=== PATIENT | male | born 1955 | race Caucasian/White ===

== ENCOUNTER 2017-02-12 15:45 | Inpatient (IN) | payer BC ==
[~2017-02-12] VITALS: Ht 175.3 cm; Wt 88.0 kg
[2017-02-12 18:33] VITALS: BP 129/89
[2017-02-12 18:57] LABS: BASO # 0.1 x10^3/uL (0.0-0.2); BASO % 1 % (0-3); EOS % 1 % (0-3); HEMATOCRIT 40.5 % (36.0-47.0); HEMOGLOBIN 13.7 g/dL (12.0-15.5); LYMPH # 1.8 x10^3/uL (1.0-4.8); LYMPH % 27 % (24-48); MEAN CORPUSCULAR HEMOGLOBIN 38 pg (25-35); MEAN CORPUSCULAR HGB CONC 34 g/dL (31-37); MEAN CORPUSCULAR VOLUME 112 fL (79-100); MONO % 7 % (0-9); NEUT % 65 % (31-73); PLATELET COUNT 89 x10^3/uL (140-400); RED BLOOD COUNT 3.63 x10^6/uL (3.50-5.40); RED CELL DISTRIBUTION WIDTH 18.9 % (11.5-14.5); WHITE BLOOD COUNT 6.6 x10^3/uL (4.0-11.0)
[2017-02-12 19:00] VITALS: BP 138/89
[2017-02-12 19:08] LABS: ALBUMIN 2.7 g/dL (3.4-5.0); ALBUMIN/GLOBULIN RATIO 0.5 (1.0-1.7); CALCIUM 8.5 mg/dL (8.5-10.1); CREATININE 1.3 mg/dL (0.6-1.0); GFR 41.5; TOTAL PROTEIN 8.3 g/dL (6.4-8.2)
[2017-02-12 19:11] LABS: POTASSIUM 2.8 mmol/L (3.5-5.1)
[2017-02-12] MEDS ORDERED: POTASSIUM CHLORIDE 10MEQ 100 ML IV SCH (19:30)
[2017-02-12] MEDS: IV DEXTROSE 5%-LACT RINGERS 1,000 ML IV SCH (19:33)
[2017-02-12] MEDS ORDERED: POTASSIUM CHLORIDE IV SCH (20:00)
[2017-02-12] MEDS ORDERED: PANTOPRAZOLE IV PUSH 40 MG VIAL. IVP ONE (20:00)
[2017-02-12] MEDS ORDERED: NORMAL SALINE IV SCH (20:00)
[2017-02-12] MEDS: ONDANSETRON PF 4 MG/2 ML VIAL. IV PRN (20:00)
[2017-02-12 20:20] LABS: ANISOCYTOSIS SLIGHT; PLT ESTIMATE DECREASED (ADEQUATE); TARGET CELLS OCC
--- NOTE | 2017-02-12 20:58 | EKG ---
[facility] [address] [place] [address] Test Date: 2017-02-12 Test Time: 20:52:43 Pat Name: NORMA STONE Department: Room: 512 1 Gender: F Principal Quality Engineer: : [id number] Requested By: GEOFFREY CALHOUN Order Number: [id number] Reading MD: Bertram Delatorre MD Measurements Intervals Orient Rate: 82 P: 180 MT: 150 QRS: 118 QRSD: 78 T: 125 QT: 426 QTc: 501 Interpretive Statements SINUS RHYTHM LEFT POSTERIOR FASCICULAR BLOCK NON-SPECIFIC ST/T CHANGES Electronically Signed On 02-17-2017 10:37:47 B[employer] REPA[employer] by Bertram Delatorre MD
[2017-02-12 21:40] LABS: BILIRUBIN,URINE NEGATIVE (NEG); GLUCOSE,URINE NEGATIVE (NEG); NITRITE,URINE NEGATIVE (NEG); PROTEIN,URINE NEGATIVE (NEG-TRACE)
[2017-02-12 21:51] LABS: BACTERIA,URINE 0 /HPF (0-FEW); BARBITURATES NEG (NEG); BENZODIAZEPINES NEG (NEG); CANNABINOIDS POS (NEG); COCAINE NEG (NEG); METHADONE NEG (NEG); OPIATES NEG (NEG); PHENCYCLIDINE NEG (NEG); RBC,URINE 0 /HPF (0-2); SQUAMOUS EPITHELIAL CELL,UR OCC /LPF; WBC,URINE 0 /HPF (0-4)
[2017-02-12] MEDS: HYDROmorphone 2 MG/ML VIAL IVP PRN (22:51)
[2017-02-12 23:00] VITALS: BP 121/76
--- NOTE | 2017-02-13 02:51 | HP ---
ADMIT DATE: 02/12/2017 CHIEF COMPLAINT: Abdominal pain. HISTORY OF PRESENT ILLNESS: A 62-year-old white male presented in the office on the day of admission with about a 6-week history of increasing pain in the upper abdomen and also in the middle and right side. There was increasing nausea and vomiting of a nonbloody nature and he has noted "dark urine" but has not noticed any change in bowel movements and has not seen any melena or hematochezia. He takes no prescription medications, he takes only periodic ibuprofen as far as [id number]-trhftob meds. PAST MEDICAL HISTORY: He has had nasal surgery only. He has no drug allergies or immunization history. He has had no other surgeries or admissions. He had a colonoscopy "30 years ago" but none since that time. SOCIAL HISTORY: He is only an occasional drinker. He quit smoking a couple of years ago. He is . He is employed. FAMILY HISTORY: Unremarkable. REVIEW OF SYSTEMS: Denies weight loss, fever, chills or other specific complaints. PHYSICAL EXAMINATION: ENT: Sclerae very minimally icteric. Pupils round and reactive. TMs and pharynx clear. NECK: Revealed no carotid bruits, thyroid enlargement or masses. LUNGS: Clear with mild tachypnea. CARDIOVASCULAR: Regular rate tachycardia of about 100-110 and regular. ABDOMEN: Tender in the epigastrium and right upper quadrant, less so on the left lower quadrant. No guarding or masses were felt. No overt Pablo sign is noted. Bowel sounds are active. EXTREMITIES: Good pedal and radial pulses. No joint or skin lesions or nail bed findings. GENITOURINARY AND RECTAL: Deferred. NEUROLOGIC: Physiologic, nonfocal. Alert and oriented. ASSESSMENT: Upper abdominal pain, nausea, vomiting, mild dehydration. Differential would include peptic ulcer disease with outlet obstruction, biliary tract disease as he does have mild bilirubin in the urine, liver disease, alcoholic or nonalcoholic as the most likely etiologies. He denies alcoholic hepatitis and pancreatitis could present similarly as well. PLAN: Labs, CT scan, IV fluids, Protonix and then appropriate evaluation and consultation. GEOFFREY CALHOUN MD DR: ADELE/oh JOB#: [id number] / [id number]
[2017-02-13 03:07] VITALS: BP 123/71
[2017-02-13] MEDS: HYDROmorphone 2 MG/ML VIAL IVP PRN ×3 (03:50→19:56)
[2017-02-13] MEDS: IV DEXTROSE 5%-LACT RINGERS 1,000 ML IV SCH ×3 (04:09→19:54)
[2017-02-13 06:24] LABS: ALBUMIN/GLOBULIN RATIO 0.5 (1.0-1.7); CALCIUM 7.4 mg/dL (8.5-10.1); GFR 56.2; POTASSIUM 3.2 mmol/L (3.5-5.1); TOTAL BILIRUBIN 3.2 mg/dL (0.2-1.0); TOTAL PROTEIN 6.1 g/dL (6.4-8.2)
[2017-02-13] MEDS ORDERED: CONTRAST GIVEN MC PRN (06:30)
[2017-02-13] MEDS ORDERED: IOHEXOL 300 MG/ML 100ML VIAL. IV ONE (07:00)
[2017-02-13 07:35] VITALS: BP 135/78
[2017-02-13 08:16] LABS: PLT ESTIMATE DECREASED (ADEQUATE)
--- NOTE | 2017-02-13 08:47 | PDOC ---
Provider Note Provider Note pain same, vss, good output- bili 5 , now 3.2, alt/ggtp/mcv all high , suspect etoh as etiology that he denies, uds showed etoh and thc - will add thiamine, ct pending , check d/bilGEOFFREY Lee MD Feb 13, 2017 08:46
[2017-02-13] MEDS ORDERED: PNEUMOC CONJ VACC 23-VALENT 0.5 ML VIAL. VAX IM ONE (09:00)
[2017-02-13] MEDS ORDERED: THIAMINE 100 MG in IV DEXTROSE 5% 50 ML IV SCH (09:00)
[2017-02-13] MEDS ORDERED: PNEUMOCOCCAL VAX SCREEN BY RX. MC ONE (09:00)
[2017-02-13] MEDS ORDERED: FLU VACC QS2017-18 (36MOS+)/PF 0.5 ML SYRINGE. VAX IM ONE (09:00)
[2017-02-13] MEDS ORDERED: INFLUENZA VAX SCREEN BY RX. MC ONE (09:00)
--- NOTE | 2017-02-13 10:05 | RAD ---
EXAM: CT abdomen/pelvis with contrast. HISTORY: Abdominal pain. TECHNIQUE: Computed tomography of the abdomen and pelvis was performed after the intravenous administration of 75 mL Omnipaque 300. COMPARISON: None. FINDINGS: Lung windows through the visualized portions of the bases reveal trace bilateral pleural effusions and associated atelectasis. Bone windows reveal no suspicious lesions. Hypoattenuation of the hepatic parenchyma indicates at least mild diffuse hepatic steatosis. Hepatic surface nodularity indicated surrounding change. There are no clear focal hepatic lesions. The spleen is not enlarged. A spleen or renal shunt is noted. There are small paraesophageal varices. There is a small amount of ascites. Small gallstones are noted. The common duct is mildly dilated at 8 mm. The pancreas, adrenal glands and kidneys are unremarkable. There are no pathologically enlarged lymph nodes. Sigmoid diverticulosis is moderate. There is no obstruction. A small umbilical hernia contains only fat. IMPRESSION: 1. Hepatic cirrhosis. No focal hepatic lesions. Small ascites. Small paraesophageal varices. 2. Cholelithiasis. 3. Small umbilical hernia containing only fat. *One or more of the following individualized dose reduction techniques were utilized for this examination: 1. Automated exposure control. 2. Adjustment of the mA and/or kV according to patient size. 3. Use of iterative reconstruction technique.
[2017-02-13 10:45] VITALS: BP 129/72
[2017-02-13] MEDS: PANTOPRAZOLE IV PUSH 40 MG VIAL. IVP SCH (10:50)
[2017-02-13] MEDS: THIAMINE IM 200 MG/2 ML VIAL. IM SCH (10:51)
[2017-02-13 11:23] LABS: BASO % 1 % (0-3); EOS % 3 % (0-3); HEMATOCRIT 31.9 % (36.0-47.0); HEMOGLOBIN 10.8 g/dL (12.0-15.5); LYMPH # 1.3 x10^3/uL (1.0-4.8); LYMPH % 42 % (24-48); MEAN CORPUSCULAR HEMOGLOBIN 38 pg (25-35); MEAN CORPUSCULAR HGB CONC 34 g/dL (31-37); MEAN CORPUSCULAR VOLUME 113 fL (79-100); MONO % 10 % (0-9); NEUT % 45 % (31-73); PLATELET COUNT 51 x10^3/uL (140-400); RED BLOOD COUNT 2.83 x10^6/uL (3.50-5.40); RED CELL DISTRIBUTION WIDTH 19.4 % (11.5-14.5); WHITE BLOOD COUNT 3.1 x10^3/uL (4.0-11.0)
[2017-02-13 15:00] VITALS: BP 137/82
[2017-02-13 15:01] LABS: INR 1.5 (0.8-1.1); PROTHROMBIN TIME PATIENT 17.5 SEC (11.7-14.0)
[2017-02-13] MEDS: ONDANSETRON PF 4 MG/2 ML VIAL. IV PRN (15:50)
[2017-02-13 19:00] VITALS: BP 126/80
[2017-02-13 22:51] VITALS: BP 124/59
[2017-02-14 01:15] LABS: HEP A IGM ABDY Negative (Negative)
[2017-02-14] MEDS: IV DEXTROSE 5%-LACT RINGERS 1,000 ML IV SCH ×2 (02:18→03:20)
[2017-02-14 03:00] VITALS: BP 138/83
[2017-02-14 05:54] LABS: TOTAL BILIRUBIN 3.2 mg/dL (0.2-1.0); TOTAL PROTEIN 6.2 g/dL (6.4-8.2)
[2017-02-14 07:00] VITALS: BP 120/73
[2017-02-14] MEDS: PANTOPRAZOLE IV PUSH 40 MG VIAL. IVP SCH (07:22)
[2017-02-14] MEDS: THIAMINE IM 200 MG/2 ML VIAL. IM SCH (08:42)
--- NOTE | 2017-02-14 08:51 | PDOC ---
SUBJECTIVE Subjective Mr. Alvarado is feeling somewhat better. Still having abd pain, predominantly in the RUQ/epigastric area. Discussed findings of labs and CT scan. Pt admitted to many years of heavy drinking (up to 6-10 beers most nights of the week), but has recently cut back on alcohol. When he drinks now, it is typically 3-4 shots of whiskey once or twice a week. He denies any symptoms of acute alcohol withdrawal. No hx of seizures. Notes that he hasn't had much to drink over the last 6 weeks. He doesn't know why there was alcohol in his urine on admission. He desires to advance to regular diet as tolerated. Drinking well, can stop IV fluids. OBJECTIVE Objective Reviewed. Vital Signs Vital Signs Date Time Temp Pulse Resp B/P (MAP) Pulse Ox O2 Delivery O2 Flow Rate FiO2 02/14/17 08:00 Room Air 02/14/17 07:00 99.1 108 17 120/73 (89) 93 Room Air 99.1 02/14/17 03:00 98.5 98 20 138/83 (101) 97 Room Air 98.5 02/13/17 22:51 98.1 86 18 124/59 (80) 97 Room Air 98.1 02/13/17 20:26 97 Room Air 02/13/17 20:00 Room Air 02/13/17 19:56 94 02/13/17 19:00 97.8 79 18 126/80 (95) 95 Room Air 97.8 02/13/17 15:00 98.1 77 18 137/82 (100) 94 Room Air 98.1 02/13/17 10:58 Room Air 02/13/17 10:45 98.1 83 18 129/72 (91) 96 Room Air 98.1 I & O Reviewed. PHYSICAL EXAM Physical Exam NAD, alert, oriented Mild scleral icterus RRR, no murmurs CTAB, nonlabored Abd is obese, tender to palpation in the RUQ, no appreciable fluid wave, unable to evaluate for hepatomegaly due to tenderness No LE edema, normal pulses throughout No asterixis, tremors noted, no anxiety noted. Calm, cooperative. ASSESSMENT/PLAN Assessment/Plan Cirrhosis - MELD score 15 (6% 3 month mortality Cholelithiasis Alcohol abuse MJ use RUQ abd pain Macrocytic anemia Thrombocytopenia Hyperbilirubinemia Elevated INR without anticoagulant use + Hep B c IgM ab DC IVFs Advance diet as tolerated GI consulted Kamla PRN pain - using infrequently Counseled on the importance of abstinence from alcohol Problems: COMMENT Lab Laboratory Tests Test 02/13/17 14:39 02/13/17 21:06 02/14/17 04:25 Prothrombin Time 17.5 SEC (11.7-14.0) Prothromb Time International Ratio 1.5 (0.8-1.1) Glucose (Fingerstick) 109 mg/dL (70-99) Total Bilirubin 3.2 mg/dL (0.2-1.0) Direct Bilirubin 2.0 mg/dL (0.0-0.2) Aspartate Amino Transf (AST/SGOT) 88 U/L (15-37) Alanine Aminotransferase (ALT/SGPT) 30 U/L (16-63) Alkaline Phosphatase 132 U/L (46-116) Total Protein 6.2 g/dL (6.4-8.2) Albumin 2.0 g/dL (3.4-5.0) HARJEET SOLORIO MD Feb 14, 2017 08:51
[2017-02-14 08:59] LABS: CALCIUM 7.5 mg/dL (8.5-10.1); CREATININE 0.9 mg/dL (0.7-1.3); GFR 85.5; POTASSIUM 3.7 mmol/L (3.5-5.1)
[2017-02-14] MEDS: HYDROmorphone 2 MG/ML VIAL IVP PRN ×2 (09:05→21:39)
[2017-02-14 10:37] VITALS: BP 125/75
--- NOTE | 2017-02-14 10:55 | PDOC2 ---
GI CONSULT Reason For Consult: cirrhosis, + Hep B c IgM ab HPI: HPI: 62 y/o male who recently has had issues w/ lower abd pain radiating to RUQ w/ n/ v, admitted a couple days ago. Apparent h/o alcohol abuse although he won't quantify w/ me how much he drinks now. Significant labs: pancytopenia w/ plt 51 , INR 1.5, bili 3.2 (from 5), AST 88, ALT 30, Alk Phos 132. On hepatitis panel , +Hep B c IgM ab. Urine + cannabinoids and ethyl alcohol. CT/ w/ cirrhosis, ascites, paraesophageal varices, and cholelithiasis. Feeling better today, going to try solid foods. Colonoscopy years ago, no significant findings recalls. H/o GERD ("carried Tums everywhere I went") ~10 years ago, no longer bothersome, no previous EGD. No dysphagia, weight loss. Last BM ~5 days ago, "feels things rumbling" today. No hematochezia, melena, hematemesis. No pancreatic history. PMH: PMH: nasal surgery, alcohol abuse, cirrhosis FH: Family History: Other (uncle had hepatitis) Social History: Smoke: Quit ALCOHOL: heavy Drugs: Marijuana ROS: GEN: Denies fevers, chills, sweats HEENT: Denies blurred vision, sore throat CV: Denies chest pain RESP: Denies shortness of air, cough GI: Per HPI : Denies hematuria, dysuria ENDO: Denies weight changes NEURO: Denies confusion, dizziness MSK: Denies weakness, joint pain/swelling SKIN: Denies jaundice, pruritus Vitals: Vitals: Vital Signs Date Time Temp Pulse Resp B/P (MAP) Pulse Ox O2 Delivery O2 Flow Rate FiO2 02/14/17 10:37 100.3 102 18 125/75 (92) 93 Room Air 100.3 Labs: Labs: Laboratory Tests Test 02/13/17 14:39 02/13/17 21:06 02/14/17 04:25 Prothrombin Time 17.5 SEC (11.7-14.0) Prothromb Time International Ratio 1.5 (0.8-1.1) Glucose (Fingerstick) 109 mg/dL (70-99) Sodium Level 141 mmol/L (136-145) Potassium Level 3.7 mmol/L (3.5-5.1) Chloride Level 104 mmol/L (98-107) Carbon Dioxide Level 33 mmol/L (21-32) Anion Gap 4 (6-14) Blood Urea Nitrogen 6 mg/dL (8-26) Creatinine 0.9 mg/dL (0.7-1.3) Estimated GFR (Cockcroft-Gault) 85.5 Glucose Level 98 mg/dL (70-99) Calcium Level 7.5 mg/dL (8.5-10.1) Total Bilirubin 3.2 mg/dL (0.2-1.0) Direct Bilirubin 2.0 mg/dL (0.0-0.2) Aspartate Amino Transf (AST/SGOT) 88 U/L (15-37) Alanine Aminotransferase (ALT/SGPT) 30 U/L (16-63) Alkaline Phosphatase 132 U/L (46-116) Total Protein 6.2 g/dL (6.4-8.2) Albumin 2.0 g/dL (3.4-5.0) Allergies: Coded Allergies: No Known Drug Allergies (Unverified , 02/12/17) Medications: Please see EMR. Imaging: Imaging: CT A/P IMPRESSION: 1. Hepatic cirrhosis. No focal hepatic lesions. Small ascites. Small paraesophageal varices. 2. Cholelithiasis. 3. Small umbilical hernia containing only fat. PE: GEN: NAD HEENT: Atraumatic, PERRL LUNGS: diminished anteriorly HEART: RRR ABD: BS+, some RUQ discomfort, some distention EXTREMITY: No edema SKIN: No rashes, no jaundice NEURO/PSYCH: A & O 3 A/P: A/P: Cirrhosis, +Hep B c IgM ab, alcohol abuse N/v, abd pain - improved Cholelithiasis Pancytopenia, elevated LFTs H/o GERD -significant ~10 years ago, no longer bothersome, no previous EGD CRC screen -colonoscopy years ago -- Possible acute Hep B infection. Check AFP, Doppler. Abstinence from alcohol. Could change IV PPI to PO if tolerates diet. Outpt EGD and colonoscopy. SANDEEP VILLARREAL Feb 14, 2017 10:55
--- NOTE | 2017-02-14 13:23 | RAD ---
EXAM: Liver Doppler. HISTORY: Cirrhosis. COMPARISON: 02/13/2017. FINDINGS: Grayscale and Doppler analysis of the hepatic vasculature was performed. Hyperechogenicity of the hepatic parenchyma indicates diffuse hepatic steatosis. Hepatic surface nodularity indicate cirrhotic change. There is a small amount of perihepatic ascites. The spleen does not appear enlarged at 11.5 cm. The hepatic veins are patent with normally directed flow. The main, right and left portal veins are also patent with normally directed flow. The splenic vein is patent. A splenorenal shunt noted by CT is not demonstrated by this technique. The hepatic artery is patent without evidence of stenosis. IMPRESSION: 1. The portal and hepatic veins are patent with normally directed flow. 2. Cirrhotic change with small ascites. Splenorenal shunt better seen on CT.
[2017-02-14 14:39] VITALS: BP 116/76
[2017-02-14 19:20] VITALS: BP 129/51
[2017-02-14] MEDS: ONDANSETRON PF 4 MG/2 ML VIAL. IV PRN (23:27)
[2017-02-14 23:50] VITALS: BP 99/52
[2017-02-15] MEDS ORDERED: PROMETHAZINE 12.5 MG in IV DEXTROSE 5% 50 ML IV PRN (01:30)
[2017-02-15 04:58] VITALS: BP 110/72
[2017-02-15 05:09] LABS: BASO % 2 % (0-3); EOS % 2 % (0-3); HEMOGLOBIN 11.3 g/dL (13.0-17.5); LYMPH # 1.1 x10^3/uL (1.0-4.8); LYMPH % 38 % (24-48); MEAN CORPUSCULAR HEMOGLOBIN 38 pg (25-35); MEAN CORPUSCULAR HGB CONC 34 g/dL (31-37); MEAN CORPUSCULAR VOLUME 113 fL (79-100); MONO % 13 % (0-9); NEUT % 45 % (31-73); PLATELET COUNT 45 x10^3/uL (140-400); RED BLOOD COUNT 2.94 x10^6/uL (4.30-5.70); RED CELL DISTRIBUTION WIDTH 18.9 % (11.5-14.5)
[2017-02-15 05:56] LABS: ALBUMIN/GLOBULIN RATIO 0.5 (1.0-1.7); CALCIUM 7.5 mg/dL (8.5-10.1); GFR 75.7; TOTAL BILIRUBIN 3.6 mg/dL (0.2-1.0); TOTAL PROTEIN 6.2 g/dL (6.4-8.2)
[2017-02-15 07:00] VITALS: BP 119/54
[2017-02-15] MEDS: PANTOPRAZOLE IV PUSH 40 MG VIAL. IVP SCH (07:53)
[2017-02-15] MEDS: THIAMINE IM 200 MG/2 ML VIAL. IM SCH (09:22)
--- NOTE | 2017-02-15 10:47 | PDOC ---
G I PROGRESS NOTE Subjective Says vomiting yesterday. To try to eat today and see. No pain. Physical Exam Lungs clear. RRR Abdomen soft, not tender nor distended. Review of Relevant I have reviewed the following items sherif (where applicable) has been applied. Labs Laboratory Tests Test 02/13/17 14:39 02/13/17 21:06 02/14/17 04:25 02/15/17 04:05 Prothrombin Time 17.5 SEC (11.7-14.0) Prothromb Time International Ratio 1.5 (0.8-1.1) Glucose (Fingerstick) 109 mg/dL (70-99) Sodium Level 141 mmol/L (136-145) 138 mmol/L (136-145) Potassium Level 3.7 mmol/L (3.5-5.1) 3.0 mmol/L (3.5-5.1) Chloride Level 104 mmol/L (98-107) 103 mmol/L (98-107) Carbon Dioxide Level 33 mmol/L (21-32) 33 mmol/L (21-32) Anion Gap 4 (6-14) 2 (6-14) Blood Urea Nitrogen 6 mg/dL (8-26) 4 mg/dL (8-26) Creatinine 0.9 mg/dL (0.7-1.3) 1.0 mg/dL (0.7-1.3) Estimated GFR (Cockcroft-Gault) 85.5 75.7 Glucose Level 98 mg/dL (70-99) 83 mg/dL (70-99) Calcium Level 7.5 mg/dL (8.5-10.1) 7.5 mg/dL (8.5-10.1) Total Bilirubin 3.2 mg/dL (0.2-1.0) 3.6 mg/dL (0.2-1.0) Direct Bilirubin 2.0 mg/dL (0.0-0.2) Aspartate Amino Transf (AST/SGOT) 88 U/L (15-37) 88 U/L (15-37) Alanine Aminotransferase (ALT/SGPT) 30 U/L (16-63) 32 U/L (16-63) Alkaline Phosphatase 132 U/L (46-116) 141 U/L (46-116) Total Protein 6.2 g/dL (6.4-8.2) 6.2 g/dL (6.4-8.2) Albumin 2.0 g/dL (3.4-5.0) 2.0 g/dL (3.4-5.0) Tumor Marker Alpha Fetoprotein 5.8 ng/mL (0.0-8.3) White Blood Count 3.0 x10^3/uL (4.0-11.0) Red Blood Count 2.94 x10^6/uL (4.30-5.70) Hemoglobin 11.3 g/dL (13.0-17.5) Hematocrit 33.0 % (39.0-53.0) Mean Corpuscular Volume 113 fL (79-100) Mean Corpuscular Hemoglobin 38 pg (25-35) Mean Corpuscular Hemoglobin Concent 34 g/dL (31-37) Red Cell Distribution Width 18.9 % (11.5-14.5) Platelet Count 45 x10^3/uL (140-400) Neutrophils (%) (Auto) 45 % (31-73) Lymphocytes (%) (Auto) 38 % (24-48) Monocytes (%) (Auto) 13 % (0-9) Eosinophils (%) (Auto) 2 % (0-3) Basophils (%) (Auto) 2 % (0-3) Neutrophils # (Auto) 1.4 x10^3uL (1.8-7.7) Lymphocytes # (Auto) 1.1 x10^3/uL (1.0-4.8) Monocytes # (Auto) 0.4 x10^3/uL (0.0-1.1) Eosinophils # (Auto) 0.1 x10^3/uL (0.0-0.7) Basophils # (Auto) 0.0 x10^3/uL (0.0-0.2) BUN/Creatinine Ratio 4 (6-20) Albumin/Globulin Ratio 0.5 (1.0-1.7) Laboratory Tests Test 02/15/17 04:05 White Blood Count 3.0 x10^3/uL (4.0-11.0) Red Blood Count 2.94 x10^6/uL (4.30-5.70) Hemoglobin 11.3 g/dL (13.0-17.5) Hematocrit 33.0 % (39.0-53.0) Mean Corpuscular Volume 113 fL (79-100) Mean Corpuscular Hemoglobin 38 pg (25-35) Mean Corpuscular Hemoglobin Concent 34 g/dL (31-37) Red Cell Distribution Width 18.9 % (11.5-14.5) Platelet Count 45 x10^3/uL (140-400) Neutrophils (%) (Auto) 45 % (31-73) Lymphocytes (%) (Auto) 38 % (24-48) Monocytes (%) (Auto) 13 % (0-9) Eosinophils (%) (Auto) 2 % (0-3) Basophils (%) (Auto) 2 % (0-3) Neutrophils # (Auto) 1.4 x10^3uL (1.8-7.7) Lymphocytes # (Auto) 1.1 x10^3/uL (1.0-4.8) Monocytes # (Auto) 0.4 x10^3/uL (0.0-1.1) Eosinophils # (Auto) 0.1 x10^3/uL (0.0-0.7) Basophils # (Auto) 0.0 x10^3/uL (0.0-0.2) Sodium Level 138 mmol/L (136-145) Potassium Level 3.0 mmol/L (3.5-5.1) Chloride Level 103 mmol/L (98-107) Carbon Dioxide Level 33 mmol/L (21-32) Anion Gap 2 (6-14) Blood Urea Nitrogen 4 mg/dL (8-26) Creatinine 1.0 mg/dL (0.7-1.3) Estimated GFR (Cockcroft-Gault) 75.7 BUN/Creatinine Ratio 4 (6-20) Glucose Level 83 mg/dL (70-99) Calcium Level 7.5 mg/dL (8.5-10.1) Total Bilirubin 3.6 mg/dL (0.2-1.0) Aspartate Amino Transf (AST/SGOT) 88 U/L (15-37) Alanine Aminotransferase (ALT/SGPT) 32 U/L (16-63) Alkaline Phosphatase 141 U/L (46-116) Total Protein 6.2 g/dL (6.4-8.2) Albumin 2.0 g/dL (3.4-5.0) Albumin/Globulin Ratio 0.5 (1.0-1.7) Medications Current Medications Pantoprazole Sodium (Protonix Vial) 40 mg DAILYAC IVP Last administered on 07:53; Start 02/13/17 at 07:30 Dextrose/Lactated Ringer's 1,000 ml @ 150 mls/hr Q6H40M IV Last administered on 02/14/17 03:20; Start 02/12/17 at 18:00; Stop 02/14/17 at 08:41; Status DC Hydromorphone HCl (Dilaudid) 0.4 mg PRN Q4HRS PRN IVP PAIN Last administered on 02/14/17 21:39; Start 02/12/17 at 18:00 Potassium Chloride 100 ml @ 100 mls/hr Q1H IV ; Start 02/12/17 at 19:30; Stop 02/13/17 at 01:29; Status UNV Ondansetron HCl (Zofran) 4 mg PRN Q6HRS PRN IV NAUSEA/VOMITING Last administered on 02/14/17 23:27; Start 02/12/17 at 19:45 Potassium Chloride 60 meq/ Sodium Chloride 1,030 ml @ 150 mls/hr Q6H52M IV Last administered on 02/12/17 20:01; Start 02/12/17 at 20:00; Stop 02/13/17 at 02:51; Status DC Pantoprazole Sodium (Protonix Vial) 40 mg 1X ONCE IVP Last administered on 20:14; Start 02/12/17 at 20:00; Stop 02/12/17 at 20:02; Status DC Info (Do NOT chart on this placeholder) 1 each 1X ONCE MC ; Start 02/13/17 at 09:00; Stop 02/13/17 at 09:01; Status UNV Pneumococcal Polyvalent Vaccine (Do NOT chart on this placeholder) 1 each 1X ONCE MC ; Start 02/13/17 at 09:00; Stop 02/13/17 at 09:01; Status UNV Influenza Virus Vaccine Quadrival (Fluarix Quad 0029-8011 Syringe) 0.5 ml ONCE ONCE VAX IM Last administered on 02/13/17 16:48; Start 02/13/17 at 09:00; Stop 02/13/17 at 09:01; Status DC Pneumococcal Polyvalent Vaccine (Pneumovax 23) 0.5 ml ONCE ONCE VAX IM Last administered on 02/13/17 16:46; Start 02/13/17 at 09:00; Stop 02/13/17 at 09:01 ; Status DC Iohexol (Omnipaque 300 Mg/ml) 60 ml 1X ONCE IV Last administered on 02/13/17 08:42; Start 02/13/17 at 07:00; Stop 02/13/17 at 07:01; Status DC Info (Do NOT chart on this entry -- for MONITORING) 1 each PRN DAILY PRN MC SEE COMMENTS; Start 02/13/17 at 06:30; Stop 02/15/17 at 06:29; Status DC Thiamine HCl 100 mg/Dextrose 51 ml @ 102 mls/hr DAILY IV ; Start 02/13/17 at 09 :00; Status UNV Thiamine HCl 100 mg DAILY IM Last administered on 02/15/17 09:22; Start 02/13 at 09:30 Promethazine HCl 12.5 mg/Dextrose 50.5 ml @ 151.5 mls/ hr PRN Q6HRS PRN IV NAUSEA/VOMITING Last administered on 02/15/17 01:48; Start 02/15/17 at 01:30 Active Scripts Active Reported No Known Medications Prior To Admisstion (Info) Each 1 Each Vitals/I & O Vital Sign - Last 24 Hours 02/14/17 02/14/17 02/14/17 02/14/17 14:39 19:20 20:00 21:39 Temp 100.3 98.6 100.3 98.6 Pulse 86 107 Resp 18 18 B/P (MAP) 116/76 (89) 129/51 (77) Pulse Ox 92 97 97 O2 Delivery Room Air Room Air Room Air Room Air 02/14/17 02/14/17 02/15/17 02/15/17 22:09 23:50 03:59 04:58 Temp 98.3 99.6 98.3 99.6 Pulse 83 103 Resp 18 18 B/P (MAP) 99/52 (68) 110/72 (85) Pulse Ox 97 92 91 O2 Delivery Room Air Room Air Room Air Room Air 02/15/17 02/15/17 02/15/17 07:00 08:00 08:45 Temp 99.3 99.3 Pulse 75 Resp 18 18 B/P (MAP) 119/54 (75) Pulse Ox 83 95 O2 Delivery Room Air Room Air Room Air Intake and Output 02/15/17 02/15/17 02/16/17 15:00 23:00 07:00 Intake Total 380 ml Balance 380 ml Images On sono: IMPRESSION: 1. The portal and hepatic veins are patent with normally directed flow. 2. Cirrhotic change with small ascites. Splenorenal shunt better seen on CT. Assessment Alcoholic liver disease, likely cirrhotic. Has spontaneous splenorenal shunt; hopefully this will decompress portal system enough that no variceal bleeding. Likely has element of alcoholic hepatitis-->the nausea and vomiting? AFP normal. Plan of Care Note Continue PPI, eating trials. Abstinence paramount. YARELY FITCH MD Feb 15, 2017 10:47
[2017-02-15 11:00] VITALS: BP 127/69
--- NOTE | 2017-02-15 11:15 | PDOC ---
SUBJECTIVE Subjective vomited yesterday but feels better today OBJECTIVE Objective low grade fever Vital Signs Vital Signs Date Time Temp Pulse Resp B/P (MAP) Pulse Ox O2 Delivery O2 Flow Rate FiO2 02/15/17 08:45 18 95 Room Air 02/15/17 08:00 Room Air 02/15/17 07:00 99.3 75 18 119/54 (75) 83 Room Air 99.3 02/15/17 04:58 99.6 103 18 110/72 (85) 91 Room Air 99.6 02/15/17 03:59 Room Air 02/14/17 23:50 98.3 83 18 99/52 (68) 92 Room Air 98.3 02/14/17 22:09 97 Room Air 02/14/17 21:39 97 Room Air 02/14/17 20:00 Room Air 02/14/17 19:20 98.6 107 18 129/51 (77) 97 Room Air 98.6 02/14/17 14:39 100.3 86 18 116/76 (89) 92 Room Air 100.3 I & O Intake and Output 02/16/17 07:00 Intake Total 380 ml Balance 380 ml Intake Oral 380 ml PHYSICAL EXAM Physical Exam lungs decrease BS in bases heart RRR abd mild tenderness RUQ ext trace edema ASSESSMENT/PLAN Assessment/Plan 1-alcoholic liver disease 2- cholelithiasis discussed avoiding fatty food his LFT's improving ? element of alcoholic hepatitis 3-Hepatitis B, his AFP is neg which is great 4-pancytopenia due to cirrhosis 5-hypokalemia replacing 6- low grade fever ? due to alcoholic hepatitis will monitor and recheck CXR Problems: COMMENT Lab Laboratory Tests Test 02/15/17 04:05 White Blood Count 3.0 x10^3/uL (4.0-11.0) Red Blood Count 2.94 x10^6/uL (4.30-5.70) Hemoglobin 11.3 g/dL (13.0-17.5) Hematocrit 33.0 % (39.0-53.0) Mean Corpuscular Volume 113 fL (79-100) Mean Corpuscular Hemoglobin 38 pg (25-35) Mean Corpuscular Hemoglobin Concent 34 g/dL (31-37) Red Cell Distribution Width 18.9 % (11.5-14.5) Platelet Count 45 x10^3/uL (140-400) Neutrophils (%) (Auto) 45 % (31-73) Lymphocytes (%) (Auto) 38 % (24-48) Monocytes (%) (Auto) 13 % (0-9) Eosinophils (%) (Auto) 2 % (0-3) Basophils (%) (Auto) 2 % (0-3) Neutrophils # (Auto) 1.4 x10^3uL (1.8-7.7) Lymphocytes # (Auto) 1.1 x10^3/uL (1.0-4.8) Monocytes # (Auto) 0.4 x10^3/uL (0.0-1.1) Eosinophils # (Auto) 0.1 x10^3/uL (0.0-0.7) Basophils # (Auto) 0.0 x10^3/uL (0.0-0.2) Sodium Level 138 mmol/L (136-145) Potassium Level 3.0 mmol/L (3.5-5.1) Chloride Level 103 mmol/L (98-107) Carbon Dioxide Level 33 mmol/L (21-32) Anion Gap 2 (6-14) Blood Urea Nitrogen 4 mg/dL (8-26) Creatinine 1.0 mg/dL (0.7-1.3) Estimated GFR (Cockcroft-Gault) 75.7 BUN/Creatinine Ratio 4 (6-20) Glucose Level 83 mg/dL (70-99) Calcium Level 7.5 mg/dL (8.5-10.1) Total Bilirubin 3.6 mg/dL (0.2-1.0) Aspartate Amino Transf (AST/SGOT) 88 U/L (15-37) Alanine Aminotransferase (ALT/SGPT) 32 U/L (16-63) Alkaline Phosphatase 141 U/L (46-116) Total Protein 6.2 g/dL (6.4-8.2) Albumin 2.0 g/dL (3.4-5.0) Albumin/Globulin Ratio 0.5 (1.0-1.7) MONA JADE MD Feb 15, 2017 11:15
[2017-02-15] MEDS ORDERED: POTASSIUM CHLORIDE 20 MEQ TABLET.ER. PO ONE (11:30)
[2017-02-15 14:45] VITALS: BP 130/60
[2017-02-15] MEDS ORDERED: MAGNESIUM SULFATE 2GM 50 ML IV ONE (16:30)
[2017-02-15] MEDS: HYDROmorphone 2 MG/ML VIAL IVP PRN ×2 (17:32→22:33)
[2017-02-15 19:00] VITALS: BP 123/71
[2017-02-15 23:00] VITALS: BP 131/82
[2017-02-16 03:00] VITALS: BP 116/69
[2017-02-16 05:43] LABS: HEMATOCRIT 38.3 % (39.0-53.0); HEMOGLOBIN 12.6 g/dL (13.0-17.5); RED BLOOD COUNT 3.33 x10^6/uL (4.30-5.70); WHITE BLOOD COUNT 6.1 x10^3/uL (4.0-11.0)
[2017-02-16 06:19] LABS: ALBUMIN 2.4 g/dL (3.4-5.0); ALBUMIN/GLOBULIN RATIO 0.5 (1.0-1.7); CALCIUM 8.3 mg/dL (8.5-10.1); GFR 75.7; POTASSIUM 3.4 mmol/L (3.5-5.1); TOTAL PROTEIN 7.4 g/dL (6.4-8.2)
[2017-02-16 07:00] VITALS: BP 115/76
[2017-02-16] MEDS: PANTOPRAZOLE IV PUSH 40 MG VIAL. IVP SCH (07:34)
--- NOTE | 2017-02-16 08:06 | RAD ---
EXAM: Chest, 2 views. HISTORY: Fever. COMPARISON: None. FINDINGS: Frontal and lateral views of the chest are obtained. There is no infiltrate or pneumothorax. The heart is normal in size. There is blunting of the costophrenic angles on the lateral view likely due to basilar atelectasis or trace pleural effusions. There is a calcified granuloma within the right mid thorax. IMPRESSION: Bilateral basilar atelectasis or trace pleural effusions.
[2017-02-16] MEDS ORDERED: THIAMINE 100 MG TABLET. PO SCH (09:00)
[2017-02-16 11:00] VITALS: BP 150/81
[2017-02-16] MEDS ORDERED: MORPHINE SULFATE 4 MG/ML DISP.SYRIN. IV ONE (11:00)
[2017-02-16] MEDS ORDERED: POTASSIUM CHLORIDE 20 MEQ TABLET.ER. PO ONE (11:00)
[2017-02-16] MEDS ORDERED: NORMAL SALINE IV ONE (11:30)
[2017-02-16] MEDS ORDERED: SINCALIDE IV ONE (11:30)
--- NOTE | 2017-02-16 12:11 | RAD ---
EXAM: Nuclear hepatobiliary scan. HISTORY: Pain. TECHNIQUE: Following intravenous administration of 5.0 mCi Tc 99m Choletec, anterior images of the abdomen were obtained at five minute intervals through one hour. Subsequently, 1.7 mcg CCK was administered and additional images to assess gallbladder ejection fraction were obtained. FINDINGS: There is prompt radiotracer uptake by the liver. No focal defect is seen. There is normal excretion into the biliary tree. The there is delayed accumulation of tracer within the gallbladder. The gallbladder ejection fraction is decreased at 7.3%. IMPRESSION: Severely decreased gallbladder ejection fraction of 7.3%.
[2017-02-16] MEDS: HYDROmorphone 2 MG/ML VIAL IVP PRN ×3 (12:49→21:11)
[2017-02-16 15:00] VITALS: BP 123/81
--- NOTE | 2017-02-16 15:21 | PDOC ---
Infectious Disease Note ROS ROS Vital Sign Vital Signs Vital Signs Date Time Temp Pulse Resp B/P (MAP) Pulse Ox O2 Delivery O2 Flow Rate FiO2 02/16/17 13:19 18 Room Air 02/16/17 11:00 99.3 94 150/81 (104) 94 99.3 Labs Lab Laboratory Tests Test 02/16/17 04:40 White Blood Count 6.1 x10^3/uL (4.0-11.0) Red Blood Count 3.33 x10^6/uL (4.30-5.70) Hemoglobin 12.6 g/dL (13.0-17.5) Hematocrit 38.3 % (39.0-53.0) Mean Corpuscular Volume 115 fL (79-100) Mean Corpuscular Hemoglobin 38 pg (25-35) Mean Corpuscular Hemoglobin Concent 33 g/dL (31-37) Red Cell Distribution Width 20.0 % (11.5-14.5) Platelet Count 68 x10^3/uL (140-400) Sodium Level 139 mmol/L (136-145) Potassium Level 3.4 mmol/L (3.5-5.1) Chloride Level 101 mmol/L (98-107) Carbon Dioxide Level 31 mmol/L (21-32) Anion Gap 7 (6-14) Blood Urea Nitrogen 7 mg/dL (8-26) Creatinine 1.0 mg/dL (0.7-1.3) Estimated GFR (Cockcroft-Gault) 75.7 BUN/Creatinine Ratio 7 (6-20) Glucose Level 83 mg/dL (70-99) Calcium Level 8.3 mg/dL (8.5-10.1) Magnesium Level 2.3 mg/dL (1.8-2.4) Total Bilirubin 4.0 mg/dL (0.2-1.0) Aspartate Amino Transf (AST/SGOT) 96 U/L (15-37) Alanine Aminotransferase (ALT/SGPT) 37 U/L (16-63) Alkaline Phosphatase 157 U/L (46-116) Total Protein 7.4 g/dL (6.4-8.2) Albumin 2.4 g/dL (3.4-5.0) Albumin/Globulin Ratio 0.5 (1.0-1.7) Lipase 351 U/L (73-393) Objective Assessment Fever Mild thrombophlebitis RUE Pancytopenia, slowly improving 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 no evidence of infection Continue to monitor Thank you [phone] Attending Co-Sign The patient was seen and interviewed as well as examined at the bedside. The chart was reviewed. The case was discussed. Agree with the plan of care. JOHN ARANGO APRN Feb 16, 2017 15:21 MANA ACUNA MD Feb 16, 2017 15:28
--- NOTE | 2017-02-16 15:49 | PDOC ---
SUBJECTIVE Subjective feels better tolerating diet OBJECTIVE Objective low grade temp Vital Signs Vital Signs Date Time Temp Pulse Resp B/P (MAP) Pulse Ox O2 Delivery O2 Flow Rate FiO2 02/16/17 13:19 18 Room Air 02/16/17 12:49 18 Room Air 02/16/17 11:00 99.3 94 18 150/81 (104) 94 Room Air 99.3 02/16/17 08:00 Room Air 02/16/17 07:00 99.2 93 18 115/76 (89) 100 Room Air 99.2 02/16/17 03:00 100.2 83 18 116/69 (85) 91 Room Air 100.2 02/15/17 23:03 95 02/15/17 23:00 98.6 87 18 131/82 (98) 98 Room Air 98.6 02/15/17 22:33 95 Room Air 02/15/17 20:00 Room Air 02/15/17 19:00 98.3 75 20 123/71 (88) 95 Room Air 98.3 02/15/17 17:32 18 Room Air I & O Intake and Output 02/17/17 07:00 Intake Total 360 ml Balance 360 ml Intake Oral 360 ml PHYSICAL EXAM Physical Exam no change ASSESSMENT/PLAN Assessment/Plan 1-alcoholic liver disease 2- cholelithiasis , his PIPIDA scan shows very low EF with his fever continuing ? cholecystitis , Surgery consult 3-Hepatitis B, his AFP is neg which is great 4-pancytopenia due to cirrhosis 5-hypokalemia replacing 6- low grade fever with his low EF on PIPIDA and cholelithiasis possible cholecystitis ? no obvious withdrawal symptoms, LFT's improving surgery consult will resume care in AM Problems: COMMENT Lab Laboratory Tests Test 02/16/17 04:40 White Blood Count 6.1 x10^3/uL (4.0-11.0) Red Blood Count 3.33 x10^6/uL (4.30-5.70) Hemoglobin 12.6 g/dL (13.0-17.5) Hematocrit 38.3 % (39.0-53.0) Mean Corpuscular Volume 115 fL (79-100) Mean Corpuscular Hemoglobin 38 pg (25-35) Mean Corpuscular Hemoglobin Concent 33 g/dL (31-37) Red Cell Distribution Width 20.0 % (11.5-14.5) Platelet Count 68 x10^3/uL (140-400) Sodium Level 139 mmol/L (136-145) Potassium Level 3.4 mmol/L (3.5-5.1) Chloride Level 101 mmol/L (98-107) Carbon Dioxide Level 31 mmol/L (21-32) Anion Gap 7 (6-14) Blood Urea Nitrogen 7 mg/dL (8-26) Creatinine 1.0 mg/dL (0.7-1.3) Estimated GFR (Cockcroft-Gault) 75.7 BUN/Creatinine Ratio 7 (6-20) Glucose Level 83 mg/dL (70-99) Calcium Level 8.3 mg/dL (8.5-10.1) Magnesium Level 2.3 mg/dL (1.8-2.4) Total Bilirubin 4.0 mg/dL (0.2-1.0) Aspartate Amino Transf (AST/SGOT) 96 U/L (15-37) Alanine Aminotransferase (ALT/SGPT) 37 U/L (16-63) Alkaline Phosphatase 157 U/L (46-116) Total Protein 7.4 g/dL (6.4-8.2) Albumin 2.4 g/dL (3.4-5.0) Albumin/Globulin Ratio 0.5 (1.0-1.7) Lipase 351 U/L (73-393) MONA JADE MD Feb 16, 2017 15:49
[2017-02-16 19:00] VITALS: BP 123/73
[2017-02-16] MEDS: IBUPROFEN 400 MG TABLET. PO PRN (21:07)
[2017-02-16 23:00] VITALS: BP 108/66
[2017-02-17 03:00] VITALS: BP 113/69
[2017-02-17] MEDS: IBUPROFEN 400 MG TABLET. PO PRN (04:21)
[2017-02-17] MEDS: HYDROmorphone 2 MG/ML VIAL IVP PRN (04:33)
[2017-02-17 07:00] VITALS: BP 105/70
[2017-02-17 07:21] LABS: HEMATOCRIT 32.2 % (39.0-53.0); HEMOGLOBIN 10.7 g/dL (13.0-17.5); RED BLOOD COUNT 2.84 x10^6/uL (4.30-5.70); WHITE BLOOD COUNT 2.7 x10^3/uL (4.0-11.0)
[2017-02-17 07:22] LABS: ALBUMIN 1.9 g/dL (3.4-5.0); ALBUMIN/GLOBULIN RATIO 0.5 (1.0-1.7); CALCIUM 7.6 mg/dL (8.5-10.1); CREATININE 0.9 mg/dL (0.7-1.3); GFR 85.5; POTASSIUM 4.2 mmol/L (3.5-5.1); TOTAL BILIRUBIN 3.2 mg/dL (0.2-1.0); TOTAL PROTEIN 5.8 g/dL (6.4-8.2)
[2017-02-17] MEDS: PANTOPRAZOLE IV PUSH 40 MG VIAL. IVP SCH (07:30)
--- NOTE | 2017-02-17 08:34 | PDOC ---
Provider Note Provider Note low grade temp, wbc/platelets lower, TAs and bili a little better- note severe gb dysfunction per hb scan but poor surg candidate now- ? sepsis re biliary tract so more cultures and add merrem , may consider perc drainage also but bleed risk, check hep b surface ag re + core AB, neg HbSag- GEOFFREY CALHOUN MD Feb 17, 2017 08:34
[2017-02-17] MEDS: MULTIVITAMIN with MINERAL TABLET. PO SCH (08:38)
[2017-02-17] MEDS: traMADol 50 MG TABLET PO PRN ×3 (08:38→23:14)
[2017-02-17] MEDS: PANTOPRAZOLE 40 MG TABLET.DR. PO SCH (08:38)
[2017-02-17] MEDS ORDERED: MEROPENEM 1 GM in IV NORMAL SALINE 100ML 100 ML IV SCH ×2 (09:00→14:00)
[2017-02-17] MEDS ORDERED: cefTRIAXone IV Push 1 GM VIAL. IVP SCH (09:00)
[2017-02-17] MEDS ORDERED: PHYTONADIONE 10 MG/ML ORAL SOLUTION. PO ONE (09:00)
[2017-02-17] MEDS ORDERED: MEROPENEM IV Push 1 GM VIAL. IVP SCH (09:00)
[2017-02-17] MEDS: POLYETHYLENE GLYCOL 3350 17 GM PACKET. PO SCH (09:04)
--- NOTE | 2017-02-17 09:15 | CONS ---
DATE OF CONSULTATION: 02/16/2017 REQUESTING PHYSICIAN: Dr. Posada. REASON FOR CONSULTATION: Fever. HISTORY OF PRESENT ILLNESS: This patient is a 62-year-old male who drinks about a pint of whiskey a week averaging a few shots every day. He was admitted on the with a 6-week history of increasing abdominal pain associated with nausea, vomiting and dark urine. Imaging revealed hepatic cirrhosis with ascites and paraesophageal varices along with cholelithiasis and splenorenal shunt. In addition, hepatitis B core IgM antibody was positive. Since admission, he has spiked a fever of 100.2, hence ID consult. The patient is feeling alright at the moment. Less abdominal pain. He recently received the influenza and pneumococcal vaccine a few days ago. He denies headaches, nasal/sinus congestion or sore throat. Denies cough, shortness of air or wheezing. Denies chest pain, palpitations or swelling. Denies diarrhea or constipation. Denies anxiety or shakes. PAST MEDICAL HISTORY: Alcoholism. PAST SURGICAL HISTORY: Nasal surgery. SOCIAL HISTORY: The patient has been for the past 2 years. He denies sexual encounters since. He drinks a couple of shots of whiskey every day averaging about pint a week. He is a former smoker. He smokes marijuana. He lives alone. He is employed at [employer]. FAMILY HISTORY: Positive for diabetes mellitus and coronary artery disease. ALLERGIES: No known drug allergies. MEDICATIONS: Reviewed on the JUN. He is not on any antibiotics. REVIEW OF SYSTEMS: As per HPI. Otherwise, all other review of systems are negative. PHYSICAL EXAMINATION: GENERAL: male, propped up in bed, in no apparent distress. VITAL SIGNS: Afebrile, blood pressure 150/81, heart rate 94, respiratory rate 18 and pulse oximetry is 94% on room air. Weight is 192 pounds and BMI of 28. HEENT: Pupils are equally round and reactive. Normal conjunctivae. Oral mucosa is pink. No lesions seen. NECK: Supple. LUNGS: Clear. HEART: Normal S1 and S2. ABDOMEN: Obese, bowel sounds active, soft, mild right upper quadrant tenderness. EXTREMITIES: No gross edema or cyanosis. SKIN: Without rash. Right antecubital space mildly erythematous and warm from previous IV site. NEUROLOGIC: Alert and oriented x 3. Moves all extremities. LABORATORY DATA: WBC 6.1 from 3.0, hemoglobin 12.6, hematocrit 28.3 and platelet count 68,000 from 45. Sodium 139, potassium 3.4, creatinine 1.0, BUN 7, glucose 83, total bilirubin 4.0, AST 96, ALT 37, albumin 2.4 and lipase 351. Tumor marker AFP 5.8. Urine toxicology is positive for cannabinoids and ethyl alcohol. Urinalysis is unremarkable for infection with negative culture. Blood culture is negative. Hepatitis B core IgM antibody positive, hepatitis B surface antigen negative, hepatitis A IgM antibody negative, hepatitis C antibody less than 0.1. Abdominal/pelvis CT and abdominal ultrasound per HPI. HIDA scan shows severely decreased gallbladder ejection fraction at 7.3%. Chest x-ray shows bilateral basilar atelectasis with trace pleural effusions. IMPRESSION: 1. Fever. 2. Mild thrombophlebitis, right upper extremity. 3. Pancytopenia slowly improving. 4. 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 5. Possible acute hepatitis B. 6. Alcoholism. 7. Substance abuse. PLAN: Hold antibiotics at this time. Fever may be reactive from recent vaccinations, alcohol withdrawal, acute hepatitis or thrombophlebitis. No evidence of infection present. Strongly recommend to abstain from alcohol. Thank you Dr. Posada for asking us to participate in this patient's care. Should you have further questions or concerns, please call. The patient seen and examined and plan of care implemented by Dr. Benny Acuna. BENNY ACUNA MD DR: BÁRBARA/oh JOB#: [id number] / [id number]
[2017-02-17 10:28] LABS: INR 1.5 (0.8-1.1); PROTHROMBIN TIME PATIENT 17.5 SEC (11.7-14.0)
[2017-02-17 11:09] VITALS: BP 108/68
--- NOTE | 2017-02-17 11:57 | PDOC ---
Infectious Disease Note Subjective Subjective Has some abd pain at times mid lower and RUQ + BM - no blood ROS ROS GEN: Denies sweats HEENT: Denies blurred vision, sore throat CV: Denies chest pain RESP: Denies shortness of air, cough GI: Denies n/v/d NEURO: Denies confusion, dizziness MSK: Denies weakness, joint pain/swelling Vital Sign Vital Signs Vital Signs Date Time Temp Pulse Resp B/P (MAP) Pulse Ox O2 Delivery O2 Flow Rate FiO2 02/17/17 11:09 98.6 81 18 108/68 (81) 93 Room Air 98.6 Physical Exam PHYSICAL EXAM GENERAL: NAD, Alert HEENT: PERRL, OC/OP clear NECK: Supple, no JVD, no LN LUNGS: Clear HEART: S1S2, no gallop, no murmur ABD: Soft, NT, no organomegaly, no rebound EXT: No edema, no cyanosis G[employer]ST [employer] REPRESENTATIVE: Alert, oriented x 3, no focal neurologic deficit SKIN: No rash IV: ok Labs Lab Laboratory Tests Test 02/17/17 06:10 02/17/17 09:30 White Blood Count 2.7 x10^3/uL (4.0-11.0) Red Blood Count 2.84 x10^6/uL (4.30-5.70) Hemoglobin 10.7 g/dL (13.0-17.5) Hematocrit 32.2 % (39.0-53.0) Mean Corpuscular Volume 113 fL (79-100) Mean Corpuscular Hemoglobin 38 pg (25-35) Mean Corpuscular Hemoglobin Concent 33 g/dL (31-37) Red Cell Distribution Width 18.0 % (11.5-14.5) Platelet Count 43 x10^3/uL (140-400) Sodium Level 141 mmol/L (136-145) Potassium Level 4.2 mmol/L (3.5-5.1) Chloride Level 106 mmol/L (98-107) Carbon Dioxide Level 33 mmol/L (21-32) Anion Gap 2 (6-14) Blood Urea Nitrogen 6 mg/dL (8-26) Creatinine 0.9 mg/dL (0.7-1.3) Estimated GFR (Cockcroft-Gault) 85.5 BUN/Creatinine Ratio 7 (6-20) Glucose Level 86 mg/dL (70-99) Calcium Level 7.6 mg/dL (8.5-10.1) Total Bilirubin 3.2 mg/dL (0.2-1.0) Aspartate Amino Transf (AST/SGOT) 72 U/L (15-37) Alanine Aminotransferase (ALT/SGPT) 29 U/L (16-63) Alkaline Phosphatase 134 U/L (46-116) Total Protein 5.8 g/dL (6.4-8.2) Albumin 1.9 g/dL (3.4-5.0) Albumin/Globulin Ratio 0.5 (1.0-1.7) Prothrombin Time 17.5 SEC (11.7-14.0) Prothromb Time International Ratio 1.5 (0.8-1.1) Objective Assessment Fever Acalculous Cholecystitis Mild thrombophlebitis RUE Pancytopenia, slowly improving 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
[2017-02-17] MEDS ORDERED: cefTRIAXone SODIUM 2 GM in IV DEXTROSE 5% 100 ML IV SCH (12:00)
[2017-02-17] MEDS: cefTRIAXone IV Push 2 GM VIAL. IVP SCH (13:42)
[2017-02-17 15:00] VITALS: BP 103/64
--- NOTE | 2017-02-17 16:26 | PDOC2 ---
CONSULT Date of Consult Date of Consult DATE: 02/17/17 TIME: 16:25 Social History Quit ALCOHOL: heavy Drugs: Marijuana Current Medications Current Medications Current Medications Pantoprazole Sodium (Protonix Vial) 40 mg DAILYAC IVP Last administered on 07:34; Start 02/13/17 at 07:30; Stop 02/17/17 at 08:15; Status DC Dextrose/Lactated Ringer's 1,000 ml @ 150 mls/hr Q6H40M IV Last administered on 02/14/17 03:20; Start 02/12/17 at 18:00; Stop 02/14/17 at 08:41; Status DC Hydromorphone HCl (Dilaudid) 0.4 mg PRN Q4HRS PRN IVP PAIN Last administered on 02/17/17 04:33; Start 02/12/17 at 18:00; Stop 02/17/17 at 08:15; Status DC Potassium Chloride 100 ml @ 100 mls/hr Q1H IV ; Start 02/12/17 at 19:30; Stop 02/13/17 at 01:29; Status UNV Ondansetron HCl (Zofran) 4 mg PRN Q6HRS PRN IV NAUSEA/VOMITING Last administered on 02/14/17 23:27; Start 02/12/17 at 19:45 Potassium Chloride 60 meq/ Sodium Chloride 1,030 ml @ 150 mls/hr Q6H52M IV Last administered on 02/12/17 20:01; Start 02/12/17 at 20:00; Stop 02/13/17 at 02:51; Status DC Pantoprazole Sodium (Protonix Vial) 40 mg 1X ONCE IVP Last administered on 20:14; Start 02/12/17 at 20:00; Stop 02/12/17 at 20:02; Status DC Info (Do NOT chart on this placeholder) 1 each 1X ONCE MC ; Start 02/13/17 at 09:00; Stop 02/13/17 at 09:01; Status UNV Pneumococcal Polyvalent Vaccine (Do NOT chart on this placeholder) 1 each 1X ONCE MC ; Start 02/13/17 at 09:00; Stop 02/13/17 at 09:01; Status UNV Influenza Virus Vaccine Quadrival (Fluarix Quad 5858-1305 Syringe) 0.5 ml ONCE ONCE VAX IM Last administered on 02/13/17 16:48; Start 02/13/17 at 09:00; Stop 02/13/17 at 09:01; Status DC Pneumococcal Polyvalent Vaccine (Pneumovax 23) 0.5 ml ONCE ONCE VAX IM Last administered on 02/13/17 16:46; Start 02/13/17 at 09:00; Stop 02/13/17 at 09:01 ; Status DC Iohexol (Omnipaque 300 Mg/ml) 60 ml 1X ONCE IV Last administered on 02/13/17 08:42; Start 02/13/17 at 07:00; Stop 02/13/17 at 07:01; Status DC Info (Do NOT chart on this entry -- for MONITORING) 1 each PRN DAILY PRN MC SEE COMMENTS; Start 02/13/17 at 06:30; Stop 02/15/17 at 06:29; Status DC Thiamine HCl 100 mg/Dextrose 51 ml @ 102 mls/hr DAILY IV ; Start 02/13/17 at 09 :00; Status UNV Thiamine HCl 100 mg DAILY IM Last administered on 02/15/17 09:22; Start 02/13 at 09:30; Stop 02/15/17 at 13:57; Status DC Promethazine HCl 12.5 mg/Dextrose 50.5 ml @ 151.5 mls/ hr PRN Q6HRS PRN IV NAUSEA/VOMITING Last administered on 02/15/17 01:48; Start 02/15/17 at 01:30 Potassium Chloride (Klor-Con) 40 meq 1X ONCE PO Last administered on 11:50; Start 02/15/17 at 11:30; Stop 02/15/17 at 11:31; Status DC Thiamine Mononitrate (Vitamin B-1) 100 mg DAILY PO Last administered on 12:11; Start 02/16/17 at 09:00; Stop 02/17/17 at 08:15; Status DC Magnesium Sulfate/ Dextrose 50 ml @ 25 mls/hr 1X ONCE IV Last administered on 02/15/17 17:24; Start 02/15/17 at 16:30; Stop 02/15/17 at 18:29; Status DC Morphine Sulfate 4 mg 1X ONCE IV ; Start 02/16/17 at 11:00; Stop 02/16/17 at 11:01; Status DC Potassium Chloride (Klor-Con) 40 meq 1X ONCE PO Last administered on 12:13; Start 02/16/17 at 11:00; Stop 02/16/17 at 11:01; Status DC Sincalide 1.74 mcg/Sodium Chloride 30 ml @ 120 mls/hr 1X ONCE IV Last administered on 02/16/17 11:53; Start 02/16/17 at 11:30; Stop 02/16/17 at 11 :44; Status DC Ibuprofen (Motrin) 400 mg PRN Q6HRS PRN PO MILD PAIN / TEMP Last administered on 02/17/17 04:21; Start 02/16/17 at 21:00 Multivitamins (Thera M Plus) 1 tab DAILY PO Last administered on 02/17/17 08: 38; Start 02/17/17 at 09:00 Tramadol HCl (Ultram) 50 mg PRN Q6HRS PRN PO PAIN Last administered on 08:38; Start 02/17/17 at 08:15 Pantoprazole Sodium (Protonix) 40 mg DAILYAC PO Last administered on 08:38; Start 02/17/17 at 09:00 Ceftriaxone Sodium 1 gm/ Dextrose 50 ml @ 100 mls/hr Q24H IV ; Start 02/17/17 at 08:15; Status UNV Ceftriaxone Sodium (Rocephin) 1 gm Q24H IVP ; Start 02/17/17 at 09:00; Stop at 09:00; Status DC Meropenem 1 gm/ Sodium Chloride 100 ml @ 200 mls/hr Q8HRS IV ; Start 02/17/17 at 14:00; Status UNV Phytonadione (Mephyton Oral Soln) 5 mg 1X ONCE PO Last administered on 09:05; Start 02/17/17 at 09:00; Stop 02/17/17 at 09:01; Status DC Polyethylene Glycol (miraLAX PACKET) 34 gm DAILY PO Last administered on 09:04; Start 02/17/17 at 09:00 Meropenem (Merrem) 1 gm Q8HRS IVP ; Start 02/17/17 at 09:00; Status Cancel Meropenem 1 gm/ Sodium Chloride 100 ml @ 200 mls/hr Q8HRS IV Last administered on 02/17/17 09:04; Start 02/17/17 at 09:00; Stop 02/17/17 at 11 :38; Status DC Ceftriaxone Sodium 2 gm/ Dextrose 100 ml @ 200 mls/hr Q24H IV ; Start at 12:00; Status UNV Metronidazole 100 ml @ 100 mls/hr Q12HR IV Last administered on 02/17/17 12: 21; Start 02/17/17 at 12:30 Ceftriaxone Sodium (Rocephin) 2 gm Q24H IVP Last administered on 02/17/17 13: 42; Start 02/17/17 at 13:00 Active Scripts Active Reported No Known Medications Prior To Admisstion (Info) Each 1 Each Allergies Allergies: Coded Allergies: No Known Drug Allergies (Unverified , 02/12/17) Vitals VITALS Vital Signs Date Time Temp Pulse Resp B/P (MAP) Pulse Ox O2 Delivery O2 Flow Rate FiO2 02/17/17 15:00 98.2 79 20 103/64 (77) 93 Room Air 98.2 Labs Labs Laboratory Tests Test 02/16/17 04:40 02/17/17 06:10 02/17/17 09:30 White Blood Count 6.1 x10^3/uL (4.0-11.0) 2.7 x10^3/uL (4.0-11.0) Red Blood Count 3.33 x10^6/uL (4.30-5.70) 2.84 x10^6/uL (4.30-5.70) Hemoglobin 12.6 g/dL (13.0-17.5) 10.7 g/dL (13.0-17.5) Hematocrit 38.3 % (39.0-53.0) 32.2 % (39.0-53.0) Mean Corpuscular Volume 115 fL (79-100) 113 fL (79-100) Mean Corpuscular Hemoglobin 38 pg (25-35) 38 pg (25-35) Mean Corpuscular Hemoglobin Concent 33 g/dL (31-37) 33 g/dL (31-37) Red Cell Distribution Width 20.0 % (11.5-14.5) 18.0 % (11.5-14.5) Platelet Count 68 x10^3/uL (140-400) 43 x10^3/uL (140-400) Sodium Level 139 mmol/L (136-145) 141 mmol/L (136-145) Potassium Level 3.4 mmol/L (3.5-5.1) 4.2 mmol/L (3.5-5.1) Chloride Level 101 mmol/L (98-107) 106 mmol/L (98-107) Carbon Dioxide Level 31 mmol/L (21-32) 33 mmol/L (21-32) Anion Gap 7 (6-14) 2 (6-14) Blood Urea Nitrogen 7 mg/dL (8-26) 6 mg/dL (8-26) Creatinine 1.0 mg/dL (0.7-1.3) 0.9 mg/dL (0.7-1.3) Estimated GFR (Cockcroft-Gault) 75.7 85.5 BUN/Creatinine Ratio 7 (6-20) 7 (6-20) Glucose Level 83 mg/dL (70-99) 86 mg/dL (70-99) Calcium Level 8.3 mg/dL (8.5-10.1) 7.6 mg/dL (8.5-10.1) Magnesium Level 2.3 mg/dL (1.8-2.4) Total Bilirubin 4.0 mg/dL (0.2-1.0) 3.2 mg/dL (0.2-1.0) Aspartate Amino Transf (AST/SGOT) 96 U/L (15-37) 72 U/L (15-37) Alanine Aminotransferase (ALT/SGPT) 37 U/L (16-63) 29 U/L (16-63) Alkaline Phosphatase 157 U/L (46-116) 134 U/L (46-116) Total Protein 7.4 g/dL (6.4-8.2) 5.8 g/dL (6.4-8.2) Albumin 2.4 g/dL (3.4-5.0) 1.9 g/dL (3.4-5.0) Albumin/Globulin Ratio 0.5 (1.0-1.7) 0.5 (1.0-1.7) Lipase 351 U/L (73-393) Hepatitis B Surface Antibody Reactive (.) Prothrombin Time 17.5 SEC (11.7-14.0) Prothromb Time International Ratio 1.5 (0.8-1.1) Laboratory Tests Test 02/17/17 06:10 02/17/17 09:30 White Blood Count 2.7 x10^3/uL (4.0-11.0) Red Blood Count 2.84 x10^6/uL (4.30-5.70) Hemoglobin 10.7 g/dL (13.0-17.5) Hematocrit 32.2 % (39.0-53.0) Mean Corpuscular Volume 113 fL (79-100) Mean Corpuscular Hemoglobin 38 pg (25-35) Mean Corpuscular Hemoglobin Concent 33 g/dL (31-37) Red Cell Distribution Width 18.0 % (11.5-14.5) Platelet Count 43 x10^3/uL (140-400) Sodium Level 141 mmol/L (136-145) Potassium Level 4.2 mmol/L (3.5-5.1) Chloride Level 106 mmol/L (98-107) Carbon Dioxide Level 33 mmol/L (21-32) Anion Gap 2 (6-14) Blood Urea Nitrogen 6 mg/dL (8-26) Creatinine 0.9 mg/dL (0.7-1.3) Estimated GFR (Cockcroft-Gault) 85.5 BUN/Creatinine Ratio 7 (6-20) Glucose Level 86 mg/dL (70-99) Calcium Level 7.6 mg/dL (8.5-10.1) Total Bilirubin 3.2 mg/dL (0.2-1.0) Aspartate Amino Transf (AST/SGOT) 72 U/L (15-37) Alanine Aminotransferase (ALT/SGPT) 29 U/L (16-63) Alkaline Phosphatase 134 U/L (46-116) Total Protein 5.8 g/dL (6.4-8.2) Albumin 1.9 g/dL (3.4-5.0) Albumin/Globulin Ratio 0.5 (1.0-1.7) Hepatitis B Surface Antibody Reactive (.) Prothrombin Time 17.5 SEC (11.7-14.0) Prothromb Time International Ratio 1.5 (0.8-1.1) Assessment/Plan Assessment/Plan FNTBD 62 yo male with abdominal pain not sure GB is source high surgical risk will follow Thanks for consult ELYSE HOLCOMB MD Feb 17, 2017 16:26
--- NOTE | 2017-02-17 18:30 | PDOC ---
G I PROGRESS NOTE Reason for Follow-up Abd pain/cirrhosis Subjective Feeling bloated Physical Exam Lungs clear CV s1 S2 ABD +BS, soft, distended Review of Relevant I have reviewed the following items sherif (where applicable) has been applied. Labs Laboratory Tests Test 02/16/17 04:40 02/17/17 06:10 02/17/17 09:30 White Blood Count 6.1 x10^3/uL (4.0-11.0) 2.7 x10^3/uL (4.0-11.0) Red Blood Count 3.33 x10^6/uL (4.30-5.70) 2.84 x10^6/uL (4.30-5.70) Hemoglobin 12.6 g/dL (13.0-17.5) 10.7 g/dL (13.0-17.5) Hematocrit 38.3 % (39.0-53.0) 32.2 % (39.0-53.0) Mean Corpuscular Volume 115 fL (79-100) 113 fL (79-100) Mean Corpuscular Hemoglobin 38 pg (25-35) 38 pg (25-35) Mean Corpuscular Hemoglobin Concent 33 g/dL (31-37) 33 g/dL (31-37) Red Cell Distribution Width 20.0 % (11.5-14.5) 18.0 % (11.5-14.5) Platelet Count 68 x10^3/uL (140-400) 43 x10^3/uL (140-400) Sodium Level 139 mmol/L (136-145) 141 mmol/L (136-145) Potassium Level 3.4 mmol/L (3.5-5.1) 4.2 mmol/L (3.5-5.1) Chloride Level 101 mmol/L (98-107) 106 mmol/L (98-107) Carbon Dioxide Level 31 mmol/L (21-32) 33 mmol/L (21-32) Anion Gap 7 (6-14) 2 (6-14) Blood Urea Nitrogen 7 mg/dL (8-26) 6 mg/dL (8-26) Creatinine 1.0 mg/dL (0.7-1.3) 0.9 mg/dL (0.7-1.3) Estimated GFR (Cockcroft-Gault) 75.7 85.5 BUN/Creatinine Ratio 7 (6-20) 7 (6-20) Glucose Level 83 mg/dL (70-99) 86 mg/dL (70-99) Calcium Level 8.3 mg/dL (8.5-10.1) 7.6 mg/dL (8.5-10.1) Magnesium Level 2.3 mg/dL (1.8-2.4) Total Bilirubin 4.0 mg/dL (0.2-1.0) 3.2 mg/dL (0.2-1.0) Aspartate Amino Transf (AST/SGOT) 96 U/L (15-37) 72 U/L (15-37) Alanine Aminotransferase (ALT/SGPT) 37 U/L (16-63) 29 U/L (16-63) Alkaline Phosphatase 157 U/L (46-116) 134 U/L (46-116) Total Protein 7.4 g/dL (6.4-8.2) 5.8 g/dL (6.4-8.2) Albumin 2.4 g/dL (3.4-5.0) 1.9 g/dL (3.4-5.0) Albumin/Globulin Ratio 0.5 (1.0-1.7) 0.5 (1.0-1.7) Lipase 351 U/L (73-393) Hepatitis B Surface Antibody Reactive (.) Prothrombin Time 17.5 SEC (11.7-14.0) Prothromb Time International Ratio 1.5 (0.8-1.1) Laboratory Tests Test 02/17/17 06:10 02/17/17 09:30 White Blood Count 2.7 x10^3/uL (4.0-11.0) Red Blood Count 2.84 x10^6/uL (4.30-5.70) Hemoglobin 10.7 g/dL (13.0-17.5) Hematocrit 32.2 % (39.0-53.0) Mean Corpuscular Volume 113 fL (79-100) Mean Corpuscular Hemoglobin 38 pg (25-35) Mean Corpuscular Hemoglobin Concent 33 g/dL (31-37) Red Cell Distribution Width 18.0 % (11.5-14.5) Platelet Count 43 x10^3/uL (140-400) Sodium Level 141 mmol/L (136-145) Potassium Level 4.2 mmol/L (3.5-5.1) Chloride Level 106 mmol/L (98-107) Carbon Dioxide Level 33 mmol/L (21-32) Anion Gap 2 (6-14) Blood Urea Nitrogen 6 mg/dL (8-26) Creatinine 0.9 mg/dL (0.7-1.3) Estimated GFR (Cockcroft-Gault) 85.5 BUN/Creatinine Ratio 7 (6-20) Glucose Level 86 mg/dL (70-99) Calcium Level 7.6 mg/dL (8.5-10.1) Total Bilirubin 3.2 mg/dL (0.2-1.0) Aspartate Amino Transf (AST/SGOT) 72 U/L (15-37) Alanine Aminotransferase (ALT/SGPT) 29 U/L (16-63) Alkaline Phosphatase 134 U/L (46-116) Total Protein 5.8 g/dL (6.4-8.2) Albumin 1.9 g/dL (3.4-5.0) Albumin/Globulin Ratio 0.5 (1.0-1.7) Hepatitis B Surface Antibody Reactive (.) Prothrombin Time 17.5 SEC (11.7-14.0) Prothromb Time International Ratio 1.5 (0.8-1.1) Microbiology 02/15/17 Blood Culture - Preliminary, Resulted NO GROWTH AFTER 2 DAYS 02/15/17 Urine Culture - Final, Complete 02/15/17 Urine Culture Result 1 (REID) - Final, Complete Medications Current Medications Pantoprazole Sodium (Protonix Vial) 40 mg DAILYAC IVP Last administered on 07:34; Start 02/13/17 at 07:30; Stop 02/17/17 at 08:15; Status DC Dextrose/Lactated Ringer's 1,000 ml @ 150 mls/hr Q6H40M IV Last administered on 02/14/17 03:20; Start 02/12/17 at 18:00; Stop 02/14/17 at 08:41; Status DC Hydromorphone HCl (Dilaudid) 0.4 mg PRN Q4HRS PRN IVP PAIN Last administered on 02/17/17 04:33; Start 02/12/17 at 18:00; Stop 02/17/17 at 08:15; Status DC Potassium Chloride 100 ml @ 100 mls/hr Q1H IV ; Start 02/12/17 at 19:30; Stop 02/13/17 at 01:29; Status UNV Ondansetron HCl (Zofran) 4 mg PRN Q6HRS PRN IV NAUSEA/VOMITING Last administered on 02/14/17 23:27; Start 02/12/17 at 19:45 Potassium Chloride 60 meq/ Sodium Chloride 1,030 ml @ 150 mls/hr Q6H52M IV Last administered on 02/12/17 20:01; Start 02/12/17 at 20:00; Stop 02/13/17 at 02:51; Status DC Pantoprazole Sodium (Protonix Vial) 40 mg 1X ONCE IVP Last administered on 20:14; Start 02/12/17 at 20:00; Stop 02/12/17 at 20:02; Status DC Info (Do NOT chart on this placeholder) 1 each 1X ONCE MC ; Start 02/13/17 at 09:00; Stop 02/13/17 at 09:01; Status UNV Pneumococcal Polyvalent Vaccine (Do NOT chart on this placeholder) 1 each 1X ONCE MC ; Start 02/13/17 at 09:00; Stop 02/13/17 at 09:01; Status UNV Influenza Virus Vaccine Quadrival (Fluarix Quad [id number] Syringe) 0.5 ml ONCE ONCE VAX IM Last administered on 02/13/17 16:48; Start 02/13/17 at 09:00; Stop 02/13/17 at 09:01; Status DC Pneumococcal Polyvalent Vaccine (Pneumovax 23) 0.5 ml ONCE ONCE VAX IM Last administered on 02/13/17 16:46; Start 02/13/17 at 09:00; Stop 02/13/17 at 09:01 ; Status DC Iohexol (Omnipaque 300 Mg/ml) 60 ml 1X ONCE IV Last administered on 02/13/17 08:42; Start 02/13/17 at 07:00; Stop 02/13/17 at 07:01; Status DC Info (Do NOT chart on this entry -- for MONITORING) 1 each PRN DAILY PRN MC SEE COMMENTS; Start 02/13/17 at 06:30; Stop 02/15/17 at 06:29; Status DC Thiamine HCl 100 mg/Dextrose 51 ml @ 102 mls/hr DAILY IV ; Start 02/13/17 at 09 :00; Status UNV Thiamine HCl 100 mg DAILY IM Last administered on 02/15/17 09:22; Start 02/13 at 09:30; Stop 02/15/17 at 13:57; Status DC Promethazine HCl 12.5 mg/Dextrose 50.5 ml @ 151.5 mls/ hr PRN Q6HRS PRN IV NAUSEA/VOMITING Last administered on 02/15/17 01:48; Start 02/15/17 at 01:30 Potassium Chloride (Klor-Con) 40 meq 1X ONCE PO Last administered on 11:50; Start 02/15/17 at 11:30; Stop 02/15/17 at 11:31; Status DC Thiamine Mononitrate (Vitamin B-1) 100 mg DAILY PO Last administered on 12:11; Start 02/16/17 at 09:00; Stop 02/17/17 at 08:15; Status DC Magnesium Sulfate/ Dextrose 50 ml @ 25 mls/hr 1X ONCE IV Last administered on 02/15/17 17:24; Start 02/15/17 at 16:30; Stop 02/15/17 at 18:29; Status DC Morphine Sulfate 4 mg 1X ONCE IV ; Start 02/16/17 at 11:00; Stop 02/16/17 at 11:01; Status DC Potassium Chloride (Klor-Con) 40 meq 1X ONCE PO Last administered on 12:13; Start 02/16/17 at 11:00; Stop 02/16/17 at 11:01; Status DC Sincalide 1.74 mcg/Sodium Chloride 30 ml @ 120 mls/hr 1X ONCE IV Last administered on 02/16/17 11:53; Start 02/16/17 at 11:30; Stop 02/16/17 at 11 :44; Status DC Ibuprofen (Motrin) 400 mg PRN Q6HRS PRN PO MILD PAIN / TEMP Last administered on 02/17/17 04:21; Start 02/16/17 at 21:00 Multivitamins (Thera M Plus) 1 tab DAILY PO Last administered on 02/17/17 08: 38; Start 02/17/17 at 09:00 Tramadol HCl (Ultram) 50 mg PRN Q6HRS PRN PO PAIN Last administered on 17:10; Start 02/17/17 at 08:15 Pantoprazole Sodium (Protonix) 40 mg DAILYAC PO Last administered on 08:38; Start 02/17/17 at 09:00 Ceftriaxone Sodium 1 gm/ Dextrose 50 ml @ 100 mls/hr Q24H IV ; Start 02/17/17 at 08:15; Status UNV Ceftriaxone Sodium (Rocephin) 1 gm Q24H IVP ; Start 02/17/17 at 09:00; Stop at 09:00; Status DC Meropenem 1 gm/ Sodium Chloride 100 ml @ 200 mls/hr Q8HRS IV ; Start 02/17/17 at 14:00; Status UNV Phytonadione (Mephyton Oral Soln) 5 mg 1X ONCE PO Last administered on 09:05; Start 02/17/17 at 09:00; Stop 02/17/17 at 09:01; Status DC Polyethylene Glycol (miraLAX PACKET) 34 gm DAILY PO Last administered on 09:04; Start 02/17/17 at 09:00 Meropenem (Merrem) 1 gm Q8HRS IVP ; Start 02/17/17 at 09:00; Status Cancel Meropenem 1 gm/ Sodium Chloride 100 ml @ 200 mls/hr Q8HRS IV Last administered on 02/17/17 09:04; Start 02/17/17 at 09:00; Stop 02/17/17 at 11 :38; Status DC Ceftriaxone Sodium 2 gm/ Dextrose 100 ml @ 200 mls/hr Q24H IV ; Start at 12:00; Status UNV Metronidazole 100 ml @ 100 mls/hr Q12HR IV Last administered on 02/17/17 12: 21; Start 02/17/17 at 12:30 Ceftriaxone Sodium (Rocephin) 2 gm Q24H IVP Last administered on 02/17/17 13: 42; Start 02/17/17 at 13:00 Active Scripts Active Reported No Known Medications Prior To Admisstion (Info) Each 1 Each Vitals/I & O Vital Sign - Last 24 Hours 02/16/17 02/16/17 02/16/17 02/16/17 19:00 21:10 21:11 23:00 Temp 100.9 99.3 100.9 99.3 Pulse 61 92 Resp 18 20 18 B/P (MAP) 123/73 (90) 108/66 (80) Pulse Ox 96 95 O2 Delivery Room Air Room Air Room Air Room Air 02/17/17 02/17/17 02/17/17 02/17/17 03:00 04:33 05:00 07:00 Temp 100.9 99.0 100.9 99.0 Pulse 79 87 Resp 18 20 20 20 B/P (MAP) 113/69 (84) 105/70 (82) Pulse Ox 95 94 O2 Delivery Room Air Room Air Room Air 02/17/17 02/17/17 02/17/17 02/17/17 08:15 08:38 09:45 11:09 Temp 98.6 98.6 Pulse 81 Resp 18 B/P (MAP) 108/68 (81) Pulse Ox 93 O2 Delivery Room Air Room Air Room Air Room Air 02/17/17 02/17/17 15:00 17:10 Temp 98.2 98.2 Pulse 79 Resp 20 B/P (MAP) 103/64 (77) Pulse Ox 93 O2 Delivery Room Air Room Air Intake and Output 02/16/17 02/16/17 02/17/17 15:00 23:00 07:00 Intake Total 360 ml 880 ml 450 ml Output Total 1 ml Balance 360 ml 880 ml 449 ml Problem List Abd pain- with cirrhosis, most likely multifactorial in etiology, don't recommend lap claudio at this time. CPM GUANAKO GUADARRAMA MD Feb 17, 2017 18:30
[2017-02-17 19:00] VITALS: BP 125/76
[2017-02-17 23:16] VITALS: BP 117/73
[2017-02-18 03:00] VITALS: BP 117/66
[2017-02-18 04:20] LABS: BASO % 1 % (0-3); EOS % 3 % (0-3); HEMATOCRIT 31.3 % (39.0-53.0); HEMOGLOBIN 10.6 g/dL (13.0-17.5); LYMPH # 1.1 x10^3/uL (1.0-4.8); LYMPH % 33 % (24-48); MEAN CORPUSCULAR HEMOGLOBIN 39 pg (25-35); MEAN CORPUSCULAR HGB CONC 34 g/dL (31-37); MEAN CORPUSCULAR VOLUME 114 fL (79-100); MONO % 21 % (0-9); NEUT % 41 % (31-73); PLATELET COUNT 52 x10^3/uL (140-400); RED BLOOD COUNT 2.74 x10^6/uL (4.30-5.70); RED CELL DISTRIBUTION WIDTH 17.9 % (11.5-14.5); WHITE BLOOD COUNT 3.2 x10^3/uL (4.0-11.0)
[2017-02-18 07:00] VITALS: BP 123/71
[2017-02-18 07:30] LABS: % EOS 3 % (0-5)
[2017-02-18 07:31] LABS: ANISOCYTOSIS SLIGHT; PLT ESTIMATE DECREASED (ADEQUATE)
[2017-02-18] MEDS: PANTOPRAZOLE 40 MG TABLET.DR. PO SCH (08:10)
[2017-02-18] MEDS: MULTIVITAMIN with MINERAL TABLET. PO SCH (08:10)
[2017-02-18] MEDS: POLYETHYLENE GLYCOL 3350 17 GM PACKET. PO SCH (08:10)
--- NOTE | 2017-02-18 08:38 | PDOC ---
Provider Note Provider Note vss, no temp x 30 hrs since on antibx- wbc, platelets up a little today, TAs pending- note + hep b surface AB- cont antibx and follow cbc , leukothromocytopenia could be from infection and hypersplenism GEOFFREY CALHOUN MD Feb 18, 2017 08:38
[2017-02-18 09:00] LABS: ALBUMIN 1.8 g/dL (3.4-5.0); DIRECT BILIRUBIN 1.7 mg/dL (0.0-0.2); TOTAL BILIRUBIN 2.3 mg/dL (0.2-1.0); TOTAL PROTEIN 5.5 g/dL (6.4-8.2)
--- NOTE | 2017-02-18 09:46 | PDOC ---
SHEMAR SEYMOUR PET COUNSELOR 02/18/17 0946: SURGICAL PROGRESS NOTE Subjective patient on phone, did not end call no exam, reviewed notes from GI, PCP no surgical plans Vital Signs Vital Signs Date Time Temp Pulse Resp B/P (MAP) Pulse Ox O2 Delivery O2 Flow Rate FiO2 02/18/17 07:45 Room Air 02/18/17 07:00 98.6 85 20 123/71 (88) 98 98.6 I&O Intake and Output 02/18/17 07:00 Intake Total 1390 ml Balance 1390 ml Intake Oral 1190 ml IV Total 200 ml # Voids 4 Labs Laboratory Tests Test 02/17/17 06:10 02/17/17 09:30 02/18/17 04:03 White Blood Count 2.7 x10^3/uL (4.0-11.0) 3.2 x10^3/uL (4.0-11.0) Red Blood Count 2.84 x10^6/uL (4.30-5.70) 2.74 x10^6/uL (4.30-5.70) Hemoglobin 10.7 g/dL (13.0-17.5) 10.6 g/dL (13.0-17.5) Hematocrit 32.2 % (39.0-53.0) 31.3 % (39.0-53.0) Mean Corpuscular Volume 113 fL (79-100) 114 fL (79-100) Mean Corpuscular Hemoglobin 38 pg (25-35) 39 pg (25-35) Mean Corpuscular Hemoglobin Concent 33 g/dL (31-37) 34 g/dL (31-37) Red Cell Distribution Width 18.0 % (11.5-14.5) 17.9 % (11.5-14.5) Platelet Count 43 x10^3/uL (140-400) 52 x10^3/uL (140-400) Sodium Level 141 mmol/L (136-145) Potassium Level 4.2 mmol/L (3.5-5.1) Chloride Level 106 mmol/L (98-107) Carbon Dioxide Level 33 mmol/L (21-32) Anion Gap 2 (6-14) Blood Urea Nitrogen 6 mg/dL (8-26) Creatinine 0.9 mg/dL (0.7-1.3) Estimated GFR (Cockcroft-Gault) 85.5 BUN/Creatinine Ratio 7 (6-20) Glucose Level 86 mg/dL (70-99) Calcium Level 7.6 mg/dL (8.5-10.1) Total Bilirubin 3.2 mg/dL (0.2-1.0) 2.3 mg/dL (0.2-1.0) Aspartate Amino Transf (AST/SGOT) 72 U/L (15-37) 80 U/L (15-37) Alanine Aminotransferase (ALT/SGPT) 29 U/L (16-63) 31 U/L (16-63) Alkaline Phosphatase 134 U/L (46-116) 138 U/L (46-116) Total Protein 5.8 g/dL (6.4-8.2) 5.5 g/dL (6.4-8.2) Albumin 1.9 g/dL (3.4-5.0) 1.8 g/dL (3.4-5.0) Albumin/Globulin Ratio 0.5 (1.0-1.7) Hepatitis B Surface Antibody Reactive (.) Prothrombin Time 17.5 SEC (11.7-14.0) Prothromb Time International Ratio 1.5 (0.8-1.1) Neutrophils (%) (Auto) 41 % (31-73) Lymphocytes (%) (Auto) 33 % (24-48) Monocytes (%) (Auto) 21 % (0-9) Eosinophils (%) (Auto) 3 % (0-3) Basophils (%) (Auto) 1 % (0-3) Neutrophils # (Auto) 1.3 x10^3uL (1.8-7.7) Lymphocytes # (Auto) 1.1 x10^3/uL (1.0-4.8) Monocytes # (Auto) 0.7 x10^3/uL (0.0-1.1) Eosinophils # (Auto) 0.1 x10^3/uL (0.0-0.7) Basophils # (Auto) 0.0 x10^3/uL (0.0-0.2) Segmented Neutrophils % 50 % (35-66) Band Neutrophils % 0 % (0-9) Lymphocytes % 30 % (24-48) Monocytes % 17 % (0-10) Eosinophils % 3 % (0-5) Platelet Estimate Decreased (ADEQUATE) Anisocytosis Slight Macrocytosis Slight Direct Bilirubin 1.7 mg/dL (0.0-0.2) Laboratory Tests Test 02/18/17 04:03 White Blood Count 3.2 x10^3/uL (4.0-11.0) Red Blood Count 2.74 x10^6/uL (4.30-5.70) Hemoglobin 10.6 g/dL (13.0-17.5) Hematocrit 31.3 % (39.0-53.0) Mean Corpuscular Volume 114 fL (79-100) Mean Corpuscular Hemoglobin 39 pg (25-35) Mean Corpuscular Hemoglobin Concent 34 g/dL (31-37) Red Cell Distribution Width 17.9 % (11.5-14.5) Platelet Count 52 x10^3/uL (140-400) Neutrophils (%) (Auto) 41 % (31-73) Lymphocytes (%) (Auto) 33 % (24-48) Monocytes (%) (Auto) 21 % (0-9) Eosinophils (%) (Auto) 3 % (0-3) Basophils (%) (Auto) 1 % (0-3) Neutrophils # (Auto) 1.3 x10^3uL (1.8-7.7) Lymphocytes # (Auto) 1.1 x10^3/uL (1.0-4.8) Monocytes # (Auto) 0.7 x10^3/uL (0.0-1.1) Eosinophils # (Auto) 0.1 x10^3/uL (0.0-0.7) Basophils # (Auto) 0.0 x10^3/uL (0.0-0.2) Segmented Neutrophils % 50 % (35-66) Band Neutrophils % 0 % (0-9) Lymphocytes % 30 % (24-48) Monocytes % 17 % (0-10) Eosinophils % 3 % (0-5) Platelet Estimate Decreased (ADEQUATE) Anisocytosis Slight Macrocytosis Slight Total Bilirubin 2.3 mg/dL (0.2-1.0) Direct Bilirubin 1.7 mg/dL (0.0-0.2) Aspartate Amino Transf (AST/SGOT) 80 U/L (15-37) Alanine Aminotransferase (ALT/SGPT) 31 U/L (16-63) Alkaline Phosphatase 138 U/L (46-116) Total Protein 5.5 g/dL (6.4-8.2) Albumin 1.8 g/dL (3.4-5.0) ELYSE HOLCOMB MD 02/18/17 1356: SURGICAL PROGRESS NOTE Assessment/Plan pt seen in good spirits feels better home per PCP no surg recs can follow as outpatient Problems: SHEMAR SEYMOUR APRN Feb 18, 2017 09:46 ELYSE HOLCOMB MD Feb 18, 2017 13:56
[2017-02-18] MEDS: IBUPROFEN 400 MG TABLET. PO PRN ×2 (10:20→19:40)
--- NOTE | 2017-02-18 10:36 | PDOC ---
Infectious Disease Note Subjective Subjective Has some abd pain at times mid lower and RUQ Can't eat much sec to pain and bloating + BM - no blood No vomiting today Fever better ROS ROS GEN: Denies fevers, chills, sweats HEENT: Denies blurred vision, sore throat CV: Denies chest pain RESP: Denies shortness of air, cough GI: Denies n/v/d NEURO: Denies confusion, dizziness MSK: Denies weakness, joint pain/swelling Vital Sign Vital Signs Vital Signs Date Time Temp Pulse Resp B/P (MAP) Pulse Ox O2 Delivery O2 Flow Rate FiO2 02/18/17 07:45 Room Air 02/18/17 07:00 98.6 85 20 123/71 (88) 98 98.6 Physical Exam PHYSICAL EXAM GENERAL: NAD, Alert HEENT: PERRL, OC/OP - clear NECK: Supple, no JVD, no LN LUNGS: Clear HEART: S1S2, no gallop, no murmur ABD: Soft, distended some, Mild tender, no organomegaly, no rebound EXT: No edema, no cyanosis HOUSE SITTER: Alert, oriented x 3, no focal neurologic deficit SKIN: No rash IV: ok Labs Lab Laboratory Tests Test 02/18/17 04:03 White Blood Count 3.2 x10^3/uL (4.0-11.0) Red Blood Count 2.74 x10^6/uL (4.30-5.70) Hemoglobin 10.6 g/dL (13.0-17.5) Hematocrit 31.3 % (39.0-53.0) Mean Corpuscular Volume 114 fL (79-100) Mean Corpuscular Hemoglobin 39 pg (25-35) Mean Corpuscular Hemoglobin Concent 34 g/dL (31-37) Red Cell Distribution Width 17.9 % (11.5-14.5) Platelet Count 52 x10^3/uL (140-400) Neutrophils (%) (Auto) 41 % (31-73) Lymphocytes (%) (Auto) 33 % (24-48) Monocytes (%) (Auto) 21 % (0-9) Eosinophils (%) (Auto) 3 % (0-3) Basophils (%) (Auto) 1 % (0-3) Neutrophils # (Auto) 1.3 x10^3uL (1.8-7.7) Lymphocytes # (Auto) 1.1 x10^3/uL (1.0-4.8) Monocytes # (Auto) 0.7 x10^3/uL (0.0-1.1) Eosinophils # (Auto) 0.1 x10^3/uL (0.0-0.7) Basophils # (Auto) 0.0 x10^3/uL (0.0-0.2) Segmented Neutrophils % 50 % (35-66) Band Neutrophils % 0 % (0-9) Lymphocytes % 30 % (24-48) Monocytes % 17 % (0-10) Eosinophils % 3 % (0-5) Platelet Estimate Decreased (ADEQUATE) Anisocytosis Slight Macrocytosis Slight Total Bilirubin 2.3 mg/dL (0.2-1.0) Direct Bilirubin 1.7 mg/dL (0.0-0.2) Aspartate Amino Transf (AST/SGOT) 80 U/L (15-37) Alanine Aminotransferase (ALT/SGPT) 31 U/L (16-63) Alkaline Phosphatase 138 U/L (46-116) Total Protein 5.5 g/dL (6.4-8.2) Albumin 1.8 g/dL (3.4-5.0) Objective Assessment Fever - better Acalculous Cholecystitis Mild thrombophlebitis RUE Pancytopenia 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 antigen neg Alcoholism Substance abuse Plan Plan of Care Cont Rocephin/Flagyl F/u labs and cults CHARO INMAN MD Feb 18, 2017 10:36
[2017-02-18 11:00] VITALS: BP 118/75
[2017-02-18] MEDS: cefTRIAXone IV Push 2 GM VIAL. IVP SCH (12:38)
--- NOTE | 2017-02-18 13:22 | PDOC ---
Subjective: Subjective: Wasn't hungry for breakfast, going to try lunch. Periumbilical band-like pain radiation to RUQ. No n/v. Stooling - bloating a little improved? Objective: Vital Signs: Vital Signs Date Time Temp Pulse Resp B/P (MAP) Pulse Ox O2 Delivery O2 Flow Rate FiO2 02/18/17 11:00 98.4 84 20 118/75 (89) 98 Room Air 98.4 Labs: Laboratory Tests Test 02/18/17 04:03 White Blood Count 3.2 x10^3/uL Red Blood Count 2.74 x10^6/uL Hemoglobin 10.6 g/dL Hematocrit 31.3 % Mean Corpuscular Volume 114 fL Mean Corpuscular Hemoglobin 39 pg Mean Corpuscular Hemoglobin Concent 34 g/dL Red Cell Distribution Width 17.9 % Platelet Count 52 x10^3/uL Neutrophils (%) (Auto) 41 % Lymphocytes (%) (Auto) 33 % Monocytes (%) (Auto) 21 % Eosinophils (%) (Auto) 3 % Basophils (%) (Auto) 1 % Neutrophils # (Auto) 1.3 x10^3uL Lymphocytes # (Auto) 1.1 x10^3/uL Monocytes # (Auto) 0.7 x10^3/uL Eosinophils # (Auto) 0.1 x10^3/uL Basophils # (Auto) 0.0 x10^3/uL Segmented Neutrophils % 50 % Band Neutrophils % 0 % Lymphocytes % 30 % Monocytes % 17 % Eosinophils % 3 % Platelet Estimate Decreased Anisocytosis Slight Macrocytosis Slight Total Bilirubin 2.3 mg/dL Direct Bilirubin 1.7 mg/dL Aspartate Amino Transf (AST/SGOT) 80 U/L Alanine Aminotransferase (ALT/SGPT) 31 U/L Alkaline Phosphatase 138 U/L Total Protein 5.5 g/dL Albumin 1.8 g/dL PE: GEN: NAD LUNGS: decreased HEART: RRR ABD: RUQ discomfort NEURO/PSYCH: A & O 3 A/P: Cirrhosis, +Hep B c IgM ab, alcohol abuse -splenorenal shunt, paraesophageal varices, small ascites on imaging Periumbilical, RUQ pain Cholelithiasis, decreased GB EF -no surg plans Pancytopenia, elevated LFTs (improved) Fever - resolved -- Continue PO PPI. Abstinence from alcohol. Outpt EGD and colonoscopy. Will review any additional recommendations w/ Dr. Ferris. SANDEEP VILLARREAL Feb 18, 2017 13:22
[2017-02-18 15:00] VITALS: BP 111/68
[2017-02-18 19:00] VITALS: BP 121/61
[2017-02-18 23:00] VITALS: BP 112/74
[2017-02-19 03:00] VITALS: BP 120/78
[2017-02-19 07:00] VITALS: BP 113/71
[2017-02-19 07:24] LABS: BASO # 0.1 x10^3/uL (0.0-0.2); BASO % 2 % (0-3); EOS % 3 % (0-3); HEMATOCRIT 35.1 % (39.0-53.0); HEMOGLOBIN 11.6 g/dL (13.0-17.5); LYMPH # 1.1 x10^3/uL (1.0-4.8); LYMPH % 34 % (24-48); MEAN CORPUSCULAR HEMOGLOBIN 38 pg (25-35); MEAN CORPUSCULAR HGB CONC 33 g/dL (31-37); MEAN CORPUSCULAR VOLUME 116 fL (79-100); MONO % 24 % (0-9); NEUT % 38 % (31-73); PLATELET COUNT 66 x10^3/uL (140-400); RED BLOOD COUNT 3.02 x10^6/uL (4.30-5.70); RED CELL DISTRIBUTION WIDTH 18.2 % (11.5-14.5); WHITE BLOOD COUNT 3.2 x10^3/uL (4.0-11.0)
--- NOTE | 2017-02-19 08:51 | PDOC ---
Provider Note Provider Note remains afeb, vss, bili down some, plateltets and wbc slghtly better- slab off mill tender RUQ- cont flag/rocep another day, maybe dc 02/20 if heme labs better still, not a good surg candidate GEOFFREY CALHOUN MD Feb 19, 2017 08:51
[2017-02-19] MEDS: POLYETHYLENE GLYCOL 3350 17 GM PACKET. PO SCH (09:00)
[2017-02-19] MEDS: PANTOPRAZOLE 40 MG TABLET.DR. PO SCH (09:10)
[2017-02-19] MEDS: MULTIVITAMIN with MINERAL TABLET. PO SCH (09:10)
--- NOTE | 2017-02-19 10:49 | PDOC ---
SURGICAL PROGRESS NOTE Subjective Pt with c/o RUQ pain, but improved, enid PO well Vital Signs Vital Signs Date Time Temp Pulse Resp B/P (MAP) Pulse Ox O2 Delivery O2 Flow Rate FiO2 02/19/17 08:00 Room Air 02/19/17 07:00 97.5 83 22 113/71 (85) 98 97.5 I&O Intake and Output 02/19/17 07:00 Intake Total 1510 ml Balance 1510 ml Intake Oral 1410 ml IV Total 100 ml # Voids 7 # Bowel Movements 2 General: Alert, Oriented X3, Cooperative, No acute distress Abdomen: Soft, Other (TTP RUQ) Labs Laboratory Tests Test 02/18/17 04:03 02/19/17 05:15 White Blood Count 3.2 x10^3/uL (4.0-11.0) 3.2 x10^3/uL (4.0-11.0) Red Blood Count 2.74 x10^6/uL (4.30-5.70) 3.02 x10^6/uL (4.30-5.70) Hemoglobin 10.6 g/dL (13.0-17.5) 11.6 g/dL (13.0-17.5) Hematocrit 31.3 % (39.0-53.0) 35.1 % (39.0-53.0) Mean Corpuscular Volume 114 fL (79-100) 116 fL (79-100) Mean Corpuscular Hemoglobin 39 pg (25-35) 38 pg (25-35) Mean Corpuscular Hemoglobin Concent 34 g/dL (31-37) 33 g/dL (31-37) Red Cell Distribution Width 17.9 % (11.5-14.5) 18.2 % (11.5-14.5) Platelet Count 52 x10^3/uL (140-400) 66 x10^3/uL (140-400) Neutrophils (%) (Auto) 41 % (31-73) 38 % (31-73) Lymphocytes (%) (Auto) 33 % (24-48) 34 % (24-48) Monocytes (%) (Auto) 21 % (0-9) 24 % (0-9) Eosinophils (%) (Auto) 3 % (0-3) 3 % (0-3) Basophils (%) (Auto) 1 % (0-3) 2 % (0-3) Neutrophils # (Auto) 1.3 x10^3uL (1.8-7.7) 1.2 x10^3uL (1.8-7.7) Lymphocytes # (Auto) 1.1 x10^3/uL (1.0-4.8) 1.1 x10^3/uL (1.0-4.8) Monocytes # (Auto) 0.7 x10^3/uL (0.0-1.1) 0.8 x10^3/uL (0.0-1.1) Eosinophils # (Auto) 0.1 x10^3/uL (0.0-0.7) 0.1 x10^3/uL (0.0-0.7) Basophils # (Auto) 0.0 x10^3/uL (0.0-0.2) 0.1 x10^3/uL (0.0-0.2) Segmented Neutrophils % 50 % (35-66) Band Neutrophils % 0 % (0-9) Lymphocytes % 30 % (24-48) Monocytes % 17 % (0-10) Eosinophils % 3 % (0-5) Platelet Estimate Decreased (ADEQUATE) Anisocytosis Slight Macrocytosis Slight Total Bilirubin 2.3 mg/dL (0.2-1.0) Direct Bilirubin 1.7 mg/dL (0.0-0.2) Aspartate Amino Transf (AST/SGOT) 80 U/L (15-37) Alanine Aminotransferase (ALT/SGPT) 31 U/L (16-63) Alkaline Phosphatase 138 U/L (46-116) Total Protein 5.5 g/dL (6.4-8.2) Albumin 1.8 g/dL (3.4-5.0) Laboratory Tests Test 02/19/17 05:15 White Blood Count 3.2 x10^3/uL (4.0-11.0) Red Blood Count 3.02 x10^6/uL (4.30-5.70) Hemoglobin 11.6 g/dL (13.0-17.5) Hematocrit 35.1 % (39.0-53.0) Mean Corpuscular Volume 116 fL (79-100) Mean Corpuscular Hemoglobin 38 pg (25-35) Mean Corpuscular Hemoglobin Concent 33 g/dL (31-37) Red Cell Distribution Width 18.2 % (11.5-14.5) Platelet Count 66 x10^3/uL (140-400) Neutrophils (%) (Auto) 38 % (31-73) Lymphocytes (%) (Auto) 34 % (24-48) Monocytes (%) (Auto) 24 % (0-9) Eosinophils (%) (Auto) 3 % (0-3) Basophils (%) (Auto) 2 % (0-3) Neutrophils # (Auto) 1.2 x10^3uL (1.8-7.7) Lymphocytes # (Auto) 1.1 x10^3/uL (1.0-4.8) Monocytes # (Auto) 0.8 x10^3/uL (0.0-1.1) Eosinophils # (Auto) 0.1 x10^3/uL (0.0-0.7) Basophils # (Auto) 0.1 x10^3/uL (0.0-0.2) Problem List symptomatic cholelithiasis, cirrhosis pt is prohibitive surgical candidate secondary to cirrhosis encouraged EtOH cessation Problems: KATRINA CHILD MD Feb 19, 2017 10:49
[2017-02-19 11:00] VITALS: BP 132/78
--- NOTE | 2017-02-19 11:30 | PDOC ---
Infectious Disease Note Subjective Subjective Has some abd pain at times mid lower and RUQ but better Can't eat much sec to pain and bloating + BM - no blood No vomiting today Fever better ROS ROS GEN: Denies fevers, chills, sweats HEENT: Denies blurred vision, sore throat CV: Denies chest pain RESP: Denies shortness of air, cough GI: Denies n/v/d NEURO: Denies confusion, dizziness MSK: Denies weakness, joint pain/swelling Vital Sign Vital Signs Vital Signs Date Time Temp Pulse Resp B/P (MAP) Pulse Ox O2 Delivery O2 Flow Rate FiO2 02/19/17 11:00 97.4 88 22 132/78 (96) 97 Room Air 97.4 Physical Exam PHYSICAL EXAM GENERAL: NAD, Alert HEENT: PERRL, OC/OP NECK: Supple, no JVD, no LN LUNGS: Clear HEART: S1S2, no gallop, no murmur ABD: Soft, ND, no organomegaly, no rebound. Mild tender RUQ EXT: No edema, no cyanosis [employer]: Alert, oriented x 3, no focal neurologic deficit SKIN: No rash IV: ok Labs Lab Laboratory Tests Test 02/19/17 05:15 White Blood Count 3.2 x10^3/uL (4.0-11.0) Red Blood Count 3.02 x10^6/uL (4.30-5.70) Hemoglobin 11.6 g/dL (13.0-17.5) Hematocrit 35.1 % (39.0-53.0) Mean Corpuscular Volume 116 fL (79-100) Mean Corpuscular Hemoglobin 38 pg (25-35) Mean Corpuscular Hemoglobin Concent 33 g/dL (31-37) Red Cell Distribution Width 18.2 % (11.5-14.5) Platelet Count 66 x10^3/uL (140-400) Neutrophils (%) (Auto) 38 % (31-73) Lymphocytes (%) (Auto) 34 % (24-48) Monocytes (%) (Auto) 24 % (0-9) Eosinophils (%) (Auto) 3 % (0-3) Basophils (%) (Auto) 2 % (0-3) Neutrophils # (Auto) 1.2 x10^3uL (1.8-7.7) Lymphocytes # (Auto) 1.1 x10^3/uL (1.0-4.8) Monocytes # (Auto) 0.8 x10^3/uL (0.0-1.1) Eosinophils # (Auto) 0.1 x10^3/uL (0.0-0.7) Basophils # (Auto) 0.1 x10^3/uL (0.0-0.2) Objective Assessment Fever - better Acalculous Cholecystitis Mild thrombophlebitis RUE Pancytopenia 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 antigen neg Alcoholism Substance abuse Plan Plan of Care Cont Rocephin/Flagyl -change to po 02/20 if stable for d/c F/u labs and cults CHARO INMAN MD Feb 19, 2017 11:30
--- NOTE | 2017-02-19 13:51 | PDOC ---
Subjective: Subjective: Lower abd discomfort spreading to RUQ after lunch. Stooling. No vomiting. Objective: Vital Signs: Vital Signs Date Time Temp Pulse Resp B/P (MAP) Pulse Ox O2 Delivery O2 Flow Rate FiO2 02/19/17 11:00 97.4 88 22 132/78 (96) 97 Room Air 97.4 Labs: Laboratory Tests Test 02/19/17 05:15 White Blood Count 3.2 x10^3/uL Red Blood Count 3.02 x10^6/uL Hemoglobin 11.6 g/dL Hematocrit 35.1 % Mean Corpuscular Volume 116 fL Mean Corpuscular Hemoglobin 38 pg Mean Corpuscular Hemoglobin Concent 33 g/dL Red Cell Distribution Width 18.2 % Platelet Count 66 x10^3/uL Neutrophils (%) (Auto) 38 % Lymphocytes (%) (Auto) 34 % Monocytes (%) (Auto) 24 % Eosinophils (%) (Auto) 3 % Basophils (%) (Auto) 2 % Neutrophils # (Auto) 1.2 x10^3uL Lymphocytes # (Auto) 1.1 x10^3/uL Monocytes # (Auto) 0.8 x10^3/uL Eosinophils # (Auto) 0.1 x10^3/uL Basophils # (Auto) 0.1 x10^3/uL PE: GEN: NAD LUNGS: CTAB HEART: RRR ABD: BS+, RUQ discomfort NEURO/PSYCH: A & O 3 A/P: Cirrhosis, +Hep B c IgM ab, alcohol abuse -splenorenal shunt, paraesophageal varices, small ascites on imaging RUQ pain -on PPI -cholelithiasis w/ decreased GB EF - no surg plans Pancytopenia, elevated LFTs (improved) -- Continue same per GI. AA, outpt scopes. SANDEEP VILLARREAL Feb 19, 2017 13:51
[2017-02-19] MEDS: cefTRIAXone IV Push 2 GM VIAL. IVP SCH (15:11)
[2017-02-19] MEDS: IBUPROFEN 400 MG TABLET. PO PRN ×2 (15:12→22:18)
[2017-02-19 15:56] VITALS: BP 139/76
[2017-02-19] MEDS: traMADol 50 MG TABLET PO PRN (18:46)
[2017-02-19 19:00] VITALS: BP 136/84
[2017-02-19 23:00] VITALS: BP 117/73
[2017-02-20 03:00] VITALS: BP 129/78
[2017-02-20 06:26] LABS: BASO # 0.1 x10^3/uL (0.0-0.2); BASO % 2 % (0-3); EOS % 3 % (0-3); HEMATOCRIT 31.2 % (39.0-53.0); HEMOGLOBIN 10.5 g/dL (13.0-17.5); LYMPH # 1.3 x10^3/uL (1.0-4.8); LYMPH % 37 % (24-48); MEAN CORPUSCULAR HGB CONC 34 g/dL (31-37); MONO % 22 % (0-9); NEUT % 37 % (31-73); PLATELET COUNT 65 x10^3/uL (140-400); RED BLOOD COUNT 2.72 x10^6/uL (4.30-5.70); RED CELL DISTRIBUTION WIDTH 17.5 % (11.5-14.5); WHITE BLOOD COUNT 3.4 x10^3/uL (4.0-11.0)
[2017-02-20 06:31] LABS: MEAN CORPUSCULAR VOLUME 113 fL (79-100)
[2017-02-20 06:32] LABS: MEAN CORPUSCULAR HEMOGLOBIN 38 pg (25-35)
[2017-02-20 07:00] VITALS: BP 118/76
[2017-02-20] MEDS ORDERED: CIPROFLOXACIN HCL 250 MG TABLET. PO ONE (09:00)
--- NOTE | 2017-02-20 09:01 | DISCH ---
DISCHARGE INSTRUCTIONS Condition on Discharge Condition on Discharge: Stable Activity After Discharge Activity Instructions for Disc: No restrictions Diet after Discharge Diet after Discharge: Regular Follow-Up Follow up with: GEOFFREY Gonzalez MD Feb 20, 2017 09:01
--- NOTE | 2017-02-20 09:06 | PDOC ---
Provider Note Provider Note [id number] GEOFFREY CALHOUN MD Feb 20, 2017 09:06
[2017-02-20] MEDS: MULTIVITAMIN with MINERAL TABLET. PO SCH (09:54)
[2017-02-20] MEDS ORDERED: CIPR500T94 PO (10:55)
--- NOTE | 2017-02-20 11:01 | DS ---
DATE OF DISCHARGE: HOSPITAL SUMMARY: A 62-year-old white male who came in with abdominal pain, weakness, fatigue and admitted with a high alcohol intake. Bilirubin was high on admission at 5.0 with direct fraction of 3, all transaminases were high including GTTP, albumin was low at 2.7, AFP was normal. Vitamin B12 and lipase were normal. The MCV was high at 112 with a normal of hemoglobin of 13, platelets are low at 89,000, dropped to a gerardo of 45,000 and hovered to baseline 65,000 with a normal white cell count. Drug screen was positive only for THC and ethanol, was negative for hepatitis A and hepatitis C, he had an HBsAG that was negative, but positive core antibody and surface antibody as well. CT scan was consistent with cirrhosis with thickened liver, small paraesophageal varices and gallstones present as well and no splenic enlargement. Ultrasound was consistent with gallstones, hepatobiliary scan showed a severely decreased ejection fraction of 7 %. He was treated for alcohol withdrawal, supportive care and then he started running fever, so he had Flagyl and Rocephin for presumed cholecystitis and his fever resolved and his abdominal pain is improving. He is able to eat and drink. His vital signs are stable and his platelets and lower white cell count have improved to the point where he is physically able to follow as an outpatient. He was seen by General Surgery and felt to be a prohibitive candidate because of his cirrhosis and his thrombocytopenia. His INR was also elevated at 1.5 consistent with alcohol-induced coagulopathy. FINAL DIAGNOSES: 1. Abdominal pain secondary to severe calculous cholecystitis with dysfunctional gallbladder. 2. Severe hepatic cirrhosis with macrocytosis and thrombocytopenia secondary to chronic alcohol abuse. 3. History of hepatitis B, currently inactive. OPERATIONS, PROCEDURES, CONSULTATIONS: Dr. Aguilera and Dr. Ferris. DISPOSITION: He will take Cipro 500 mg twice a day for 1 more week, multivitamins daily. No other meds at home. Complete alcohol avoidance was encouraged to avoid progression of his disease to a fatal state and he is aware of this possibility. Surgical possibilities may improve in the future if his platelets recover, his INR recovers, probability seems unlikely. Office followup in 1 week for repeat CBC and liver function tests. PROGNOSIS: Guarded. GEOFFREY CALHOUN MD DR: ADELE/oh JOB#: [id number] / [id number]
[2017-02-20 11:03] VITALS: BP 141/83
[2017-02-20] MEDS: IBUPROFEN 400 MG TABLET. PO PRN (11:29)
--- NOTE | 2017-02-20 12:55 | PDOC ---
Subjective: Subjective: Feels better, going home today. Objective: Objective: D/w Dr. Cox. Vital Signs: Vital Signs Date Time Temp Pulse Resp B/P (MAP) Pulse Ox O2 Delivery O2 Flow Rate FiO2 02/20/17 11:03 97.7 87 20 141/83 (102) 93 Room Air 97.7 Labs: Laboratory Tests Test 02/20/17 04:20 White Blood Count 3.4 x10^3/uL Red Blood Count 2.72 x10^6/uL Hemoglobin 10.5 g/dL Hematocrit 31.2 % Mean Corpuscular Volume 113 fL Mean Corpuscular Hemoglobin 38 pg Mean Corpuscular Hemoglobin Concent 34 g/dL Red Cell Distribution Width 17.5 % Platelet Count 65 x10^3/uL Neutrophils (%) (Auto) 37 % Lymphocytes (%) (Auto) 37 % Monocytes (%) (Auto) 22 % Eosinophils (%) (Auto) 3 % Basophils (%) (Auto) 2 % Neutrophils # (Auto) 1.2 x10^3uL Lymphocytes # (Auto) 1.3 x10^3/uL Monocytes # (Auto) 0.7 x10^3/uL Eosinophils # (Auto) 0.1 x10^3/uL Basophils # (Auto) 0.1 x10^3/uL PE: GEN: NAD, walking around room NEURO/PSYCH: A & O 3 A/P: Cirrhosis, +Hep B c IgM ab, alcohol abuse -pancytopenia w/ elevated LFTs (improved RUQ pain -cholelithiasis w/ decreased GB EF - no surg plans -- DC per primary. Encouraged AA. Outpt colonoscopy +/- EGD. SANDEEP VILLARREAL Feb 20, 2017 12:55
== END 2017-02-20 11:45 | disposition home or self-care (01) | DRG 445 ==
LOC: 5 NORTH 17:44 → EDSEX 17:44
PROVIDERS: ADMIT Family Medicine; ATTEND Family Medicine
DX: K80.10 Calculus of gallbladder with chronic cholecystitis without obstruction (principal); D61.818 Other pancytopenia; D69.59 Other secondary thrombocytopenia; I80.8 Phlebitis and thrombophlebitis of other sites; I85.00 Esophageal varices without bleeding; D53.9 Nutritional anemia, unspecified; E86.0 Dehydration; D75.89 Other specified diseases of blood and blood-forming organs; E87.6 Hypokalemia; F10.20 Alcohol dependence, uncomplicated; F12.90 Cannabis use, unspecified, uncomplicated; K21.9 Gastro-esophageal reflux disease without esophagitis; K42.9 Umbilical hernia without obstruction or gangrene; K70.11 Alcoholic hepatitis with ascites; K74.60 Unspecified cirrhosis of liver; R79.1 Abnormal coagulation profile; Z82.49 Family history of ischemic heart disease and other diseases of the circulatory system; Z83.3 Family history of diabetes mellitus; Z87.891 Personal history of nicotine dependence
CPT/HCPCS: 36415; 71020; 74177; 78226; 80048; 80053; 80074; 80076; 80307; 81001; 82105; 82248; 82607; 82962; 82977; 83690; 83735; 84484; 85007; 85025; 85027; 85610; 86706; 87040; 87086; 90686; 90732; 93005; 93976; 96374; 96375; A9537; C9113; J0696; J1170; J2185; J2405; J2550; J2805; J3490; J7030; J7060; Q9967; G0479